=== PATIENT | female | born 1995 | race Caucasian/White ===

== ENCOUNTER → 2022-05-14 08:33 | Outpatient (CLI) | payer BC, SELFPAY ==
[2022-05-14 09:44] LABS: Add Manual Diff / Slide Review NO; Basophils Absolute Auto 0 /uL (0-100); Basophils Percent Auto 0.7 % (0-2); Eosinophils Absolute Auto 100 /uL (0-450); Eosinophils Percent Auto 1.5 % (2-4); Hematocrit 41.4 % (36-46); Hemoglobin 14.3 g/dL (12.0-16.0); Lymphocytes Absolute Auto 900 /uL (1100-4500); Lymphocytes Percent Auto 17.9 % (25-40); Mean Corpuscular HGB Conc 34.5 % (30-36); Mean Corpuscular Hemoglobin 30.5 PG (26-34); Mean Corpuscular Volume 88.3 fL (80-100); Monocytes Absolute Auto 400 /uL (0-900); Monocytes Percent Auto 8.3 % (3-14); Neutrophils Absolute Auto 3700 /uL (1500-7000); Neutrophils Percent Auto 71.6 % (50-75); Platelet Count 220 X10^3/uL (150-400); Red Blood Cell Count 4.69 X10^6/uL (4.0-5.2); Red Cell Distribution Width 12.7 % (11.6-14.8); White Blood Cell Count 5.2 X10^3/uL (4.5-11.0)
[2022-05-14 10:16] LABS: HEMOLYSIS < 15 (0-50); Iron 131 ug/dL (37-170)
[2022-05-14 10:20] LABS: Alanine Aminotransferase 15 IU/L (<35); Albumin 3.9 g/dL (3.5-5.0); Albumin Globulin Ratio 1.5 (1.0-2.8); Alkaline Phosphatase 67 U/L (38-126); Aspartate Aminotransferase 19 IU/L (14-36); BUN Creatinine Ratio 17.9 (6-22); Bilirubin Total 0.4 mg/dL (0.2-1.3); Blood Urea Nitrogen 12 mg/dL (7-17); Calcium 8.9 mg/dL (8.4-10.2); Carbon Dioxide 26 mmol/L (22-32); Chloride 108 mmol/L (98-107); Cholesterol 145 mg/dL (140-199); Estimated Glomerular Filt Rate > 60 mL/min (>60); Globulin 2.6 g/dL (1.7-4.1); Glucose 81 mg/dL (70-100); HDL Cholesterol 39 mg/dL (40-60); HEMOLYSIS < 15 (0-50); LDL Cholesterol Calculated 92 mg/dL (<100); Potassium 4.2 mmol/L (3.4-5.1); Sodium 140 mmol/L (137-145); Total Protein 6.5 g/dL (6.3-8.2); Triglycerides 68 mg/dL (35-150)
[2022-05-14 10:27] LABS: Percent Iron Saturation 46 % (15-50); Total Iron Binding Capacity 282 ug/dL (265-497); Transferrin 199 mg/dL (206-381)
[2022-05-14 10:51] LABS: Ferritin 43 ng/mL (6-137)
== END ==
PROVIDERS: Family Provider Family Medicine; PCP Family Medicine; Referring Provider Family Medicine; Visit Provider Family Medicine
DX: D50.9 Iron deficiency anemia, unspecified (principal); R73.9 Hyperglycemia, unspecified
CPT/HCPCS: 36415; 80053; 80061; 82728; 83540; 83550; 84443; 85025

== ENCOUNTER → 2022-06-23 09:44 | Outpatient (CLI) | payer BC, SELFPAY ==
[2022-06-23 10:54] LABS: Hematocrit 43.4 % (36-46); Mean Corpuscular HGB Conc 34.5 % (30-36); Mean Corpuscular Volume 86.9 fL (80-100); Platelet Count 246 X10^3/uL (150-400); Red Blood Cell Count 4.99 X10^6/uL (4.0-5.2); Red Cell Distribution Width 12.3 % (11.6-14.8); White Blood Cell Count 6.3 X10^3/uL (4.5-11.0)
[2022-06-23 11:22] LABS: Alanine Aminotransferase 14 IU/L (<35); Albumin 4.3 g/dL (3.5-5.0); Albumin Globulin Ratio 1.4 (1.0-2.8); Alkaline Phosphatase 68 U/L (38-126); Aspartate Aminotransferase 17 IU/L (14-36); BUN Creatinine Ratio 15.3 (6-22); Bilirubin Total 0.5 mg/dL (0.2-1.3); Blood Urea Nitrogen 11 mg/dL (7-17); Calcium 9.3 mg/dL (8.4-10.2); Carbon Dioxide 21 mmol/L (22-32); Chloride 107 mmol/L (98-107); Estimated Glomerular Filt Rate > 60 mL/min (>60); Globulin 3.1 g/dL (1.7-4.1); Glucose 80 mg/dL (70-100); HEMOLYSIS < 15 (0-50); Potassium 4.2 mmol/L (3.4-5.1); Sodium 140 mmol/L (137-145); Total Protein 7.4 g/dL (6.3-8.2)
[2022-07-02 18:50] LABS: Percent Free Testosterone 2.32 % (0.50-2.80); Testosterone Free 7.01 ng/dL (0.10-0.85)
== END ==
PROVIDERS: Family Provider Family Medicine; PCP Family Medicine; Referring Provider Family Medicine; Visit Provider Family Medicine
DX: Z51.81 Encounter for therapeutic drug level monitoring (principal); Z79.890 Hormone replacement therapy
CPT/HCPCS: 36415; 80053; 84402; 84403; 85027

== ENCOUNTER 2022-08-06 13:45 | Outpatient (RCR) | payer BC, SELFPAY ==
--- NOTE | 2022-04-26 15:32 | PT.OIE ---
Current Diagnoses Tarsal tunnel syndrome, bilateral lower limbs (04/26/22) Posterior tibial tendinitis, right leg (04/26/22) Pain in right foot (04/26/22) Visit Care Team Role Provider Type Naveen Vidal MD Family Provider Physician Primary Care Provider Specialty: Family Practice Address: [address] [place] [address], [address] Email: [email or web address] Navya Min DPM Attending Provider Physician Referring Provider Specialty: Orthopedic Surgery Podiatry Address: [address] [place] [address], [address] Email: [email or web address] Initial Evaluation PT-OP-A Visit Information Start: 04/26/22 08:08 Freq: Status: Active Protocol: Document 04/26/22 14:33 SAK (Rec: 04/26/22 15:19 SAK [id number]) Out-Patient Physical Therapy Visit Information Visit Information Visit Type Initial Evaluation Visit Start Time 14:35 Visit Stop Time 15:31 Total Visit Minutes 56 Visit Number 1 Evaluation Information Evaluation Date 04/26/22 PT-OP-B Current Condition Start: 04/26/22 08:08 Freq: Status: Active Protocol: Document 04/26/22 14:33 SAK (Rec: 04/26/22 15:19 SAK [id number]) Current Condition History of Current Condition Onset Date 2020 Current Complaints bilateral medial ankle pain History of Current Condition In July 2021 started ultimate [employer], got whitley splints, stopped playing friDEUSbee but pain seemed to have morphed into tarsal tunnel syndrome per physician diagnosis. 28 y/o brother has had tarsal tunnel syndrome that required surgery. Patient has gotten custom orthotics made at [facility], wearing for about 2 weeks and seem to be helping some, wears all the time. Also does icing, icy hot, stretching of calves and hamstrings. Has pain at the end of the day from usual activities around the house, unable to go for walks or do any athletic or recreational activities without an increase in pain Prior Treatments and Tests none. Future Testing and Treatments Planned return to physician if PT not helpful Treatment Goals Patient/Caregiver Goals Decrease pain, no pain by end of day, able to walk up to 2 miles as previosly. Play ultimate frisbee if possible. Prior Functional Status Baseline Function- ADL's Independent Baseline Function- Mobility Independent Baseline Function- Gait pain-free Baseline Function- Work/School online work. Also has carpal tunnel sundrome Baseline Function- Recreation/Hobbies rockclimbing Current Functional Impairments (Reported) Functional Limitations- Recreation/ unable. Hobbies PT-OP-C Subjective Start: 04/26/22 08:08 Freq: Status: Active Protocol: Document 04/26/22 14:33 [facility] (Rec: 04/27/22 13:41 [facility] [id number]) Patient Questionnaires Foot & Ankle Ability Measure- ADL and Sports FAAM-ADL Score 75 FAAM-Sport Score 65 Lower Extremity Functional Scale LEFS Score 74 OP-PT Pain Assessment Location ankles honorio Pain Location Details posteromedial Intensity 4 Description- Other 4-8/10 Frequency Frequent Pain Aggravating Factors Standing,Walking Pain Alleviating Factors Cold,Inactivity,Rest PT-OP-D Balance Start: 04/26/22 08:08 Freq: Status: Active Protocol: Document 04/26/22 14:33 [facility] (Rec: 04/27/22 13:41 [facility] [id number]) Balance Tests Single Limb Standing Single Limb- Right 7 Single Limb- Left 8 Semi-Tandem Standing Semi-Tandem Standing Balance 12 PT-OP-H Neuro Start: 04/26/22 08:08 Freq: Status: Active Protocol: Document 04/26/22 14:33 [facility] (Rec: 04/27/22 13:41 [facility] [id number]) Sensation Evaluation Gross Sensation Gross Sensation WNL PT-OP-J Posture/Palpation/Skin Start: 04/26/22 08:08 Freq: Status: Active Protocol: Document 04/26/22 14:33 [facility] (Rec: 04/27/22 13:41 [facility] [id number]) Posture Evaluation Position Standing Ankle/Foot Posture (L) Pronated,(R) Pronated Foot Arch (L) Low Arch,(R) Low Arch Palpation Assessment Location tib post Palpation Location mac; Palpation Findings Tenderness Palpation Details tenderness into calf ankles honorio Palpation Location post/medial Palpation Findings Tenderness PT-OP-K Range of Motion Start: 04/26/22 08:08 Freq: Status: Active Protocol: Document 04/26/22 14:33 [facility] (Rec: 04/27/22 13:41 [facility] [id number]) Ankle and Foot Goniometric Range of Motion Ankle and Foot Right Active Testing Position Supine Dorsiflexion with Knee Extended 8 Plantarflexion 65 Inversion 40 Eversion 8 Left Active Dorsiflexion with Knee Extended 8 Plantarflexion 58 Inversion 40 Eversion 10 PT-OP-M Strength Start: 04/26/22 08:08 Freq: Status: Active Protocol: Document 04/26/22 14:33 [facility] (Rec: 04/27/22 13:41 [facility] [id number]) Ankle/Foot Strength Ankle and Foot Manual Muscle Testing Right Dorsiflexion (L4) 4 Good Plantarflexion (S1) 4 Good Inversion 4 Good Eversion (S1) 4- Good- Left Dorsiflexion (L4) 4+ Good+ Plantarflexion (S1) 4+ Good+ Inversion 4+ Good+ Eversion (S1) 4 Good PT-OP-Q Treatments Start: 04/26/22 08:08 Freq: Status: Active Protocol: Document 04/26/22 14:33 [facility] (Rec: 04/27/22 13:41 [facility] [id number]) Manual Therapy Treatment Taping kinesiotape Body Location right post tib/tibial nerve route Treatment Focus inhibition, paper off tension Type of Tape Kinesio Tape Skin Inspection intact Comments 1 I strip: post tib insertion to origin Self-Care/Home Management Treatment Education Patient Education Home Exercise Program Other Education continue ice, consider compression, short foot exercises PT-OP-R Modalities Start: 04/26/22 08:08 Freq: Status: Active Protocol: Document 04/26/22 14:33 [facility] (Rec: 04/27/22 13:41 [facility] [id number]) Hot Pack/Cold Pack Treatment Cold Pack Location cryocuff right, ice pack left Patient Position Hooklying Treatment Duration (minutes) 10 Patient Tolerance Good Ultrasound Therapy Treatment Right Ankle Treatment Duration (minutes) 8 Patient Position Supine Coupling Medium Ultrasound Gel Frequency Setting (mHz) 2 Mode Setting Pulsed Duty Cycle 50% Comments tarsal tunnel region to decrease inflam PT-OP-T Assessment and Plan Start: 04/26/22 08:08 Freq: Status: Active Protocol: Document 04/26/22 14:33 [facility] (Rec: 04/27/22 13:41 [facility] [id number]) Physical Therapy Assessment Rehab Potential Rehabilitation Potential Good Evaluation Complexity Number of Personal Factors/Comorbidities 1-2 Number of Body Systems Impaired 3 Clinical Presentation at Evaluation Evolving Impairments Impairments Activity Tolerance,Balance, Pain,ROM,Strength Goals pain bilateral ankles Impairment pain 4/10 Impairment unable to take walks or play ultimate frisbee Tool Adjuster Goal (LTG) Patient lisa be able to resume taking walks up to 2 miles and playing frisbee with pain no greater than 2/10 strength and ROM impairment Impairment impaired strength and ROM bilateral feet and ankles Short Term Goal (STG) Patient will be instructed in progressive HEP consisting of strengthening and ROM STG Duration 05/27/22 Tool Adjuster Goal (LTG) Patient to demonstrate improvement in ROM to WNL bilateral feet and ankles, and strength 5/5. LTG Duration 06/27/22 balance Impairment limited SLS and tandem stance ability Short Term Goal (STG) Patient will be able to tolerate SLS and tandem stand balance exercises without an increase in pain STG Duration 05/27/22 Tool Adjuster Goal (LTG) Patient will be able to perform SLS honorio and tandem stand for 20 seconds without an increase in pain or LOB without UE support LTG Duration 06/27/22 activity tolerance Impairment ankle foot ability measure Impairment ADL's 75%, sports subscale 65% Short Term Goal (STG) Improve score to 85% ADL's and 75% sports STG Duration 05/27/22 Tool Adjuster Goal (LTG) Improve ADL score to 100% and sports score to 90% LTG Duration 06/27/22 Assessment Summary Assessment Patient presents to PT with function-limiting pain bilateral ankles right greater than left with signs and symptoms consistent with tarsal tunnel syndrome. Orthotics have helped some. Impairment decreased include ROM, strength, and balance and decreased activity tolerance. Feel he would benefit from PT to address the above impairments and help him return to prior level of function including walking and recreational activities with good tolerance. Physical Therapy Plan Frequency and Duration Frequency of Treatment 2x/Week Duration of Treatment 12 weeks Plan of Care Start Date 04/26/22 Plan of Care End Date 07/26/22 Therapeutic Interventions Therapeutic Interventions Aquatic Therapy,Balance Training,Gait Training,Home Exercise Program,Manual Therapy,Neuromuscular Re- education,Patient/Caregiver Education,Self-Care/Home Management,Soft Tissue Mobilization,Taping, Therapeutic Activities, Therapeutic Exercises Modalities Cold Pack/Ice Massage,Electric Stimulation,Hot Packs, Infrared Therapy,Iontophoresis ,Ultrasound Next Visit Focus/Plan Next Note Type Treatment Note Next Visit Plan Assess response to ultrasound and kinesiotape, review short foot exercise. Baps board for ankle ROM, theraband exercises for ankle strengthening, and balance exercises to include SLS and tandem stand as tolerated.
--- NOTE | 2022-04-26 15:32 | PT.OPPOC ---
Physical, Occupational & Speech Therapy At [facility] Current Diagnoses Tarsal tunnel syndrome, bilateral lower limbs (04/26/22) Posterior tibial tendinitis, right leg (04/26/22) Pain in right foot (04/26/22) Visit Care Team Role Provider Type Naveen Vidal MD Family Provider Physician Primary Care Provider Specialty: Family Practice Address: [address] [place] [address], [address] Email: [email or web address] Navya Min DPM Attending Provider Physician Referring Provider Specialty: Orthopedic Surgery Podiatry Address: [address] [place] [address], [address] Email: [email or web address] Plan Of Care PT-OP-T Assessment and Plan Start: 04/26/22 08:08 Freq: Status: Active Protocol: Document 04/26/22 14:33 [facility] (Rec: 04/27/22 13:41 [facility] [id number]) Physical Therapy Assessment Rehab Potential Rehabilitation Potential Good Evaluation Complexity Number of Personal Factors/Comorbidities 1-2 Number of Body Systems Impaired 3 Clinical Presentation at Evaluation Evolving Impairments Impairments Activity Tolerance,Balance, Pain,ROM,Strength Goals pain bilateral ankles Impairment pain 4/10 Impairment unable to take walks or play ultimate frisbee First Aid Nurse Goal (LTG) Patient lsia be able to resume taking walks up to 2 miles and playing frisbee with pain no greater than 2/10 strength and ROM impairment Impairment impaired strength and ROM bilateral feet and ankles Short Term Goal (STG) Patient will be instructed in progressive HEP consisting of strengthening and ROM STG Duration 05/27/22 Detention Goal (LTG) Patient to demonstrate improvement in ROM to WNL bilateral feet and ankles, and strength 5/5. LTG Duration 06/27/22 balance Impairment limited SLS and tandem stance ability Short Term Goal (STG) Patient will be able to tolerate SLS and tandem stand balance exercises without an increase in pain STG Duration 05/27/22 First Aid Nurse Goal (LTG) Patient will be able to perform SLS honorio and tandem stand for 20 seconds without an increase in pain or LOB without UE support LTG Duration 06/27/22 activity tolerance Impairment ankle foot ability measure Impairment ADL's 75%, sports subscale 65% Short Term Goal (STG) Improve score to 85% ADL's and 75% sports STG Duration 05/27/22 First Aid Nurse Goal (LTG) Improve ADL score to 100% and sports score to 90% LTG Duration 06/27/22 Assessment Summary Assessment Patient presents to PT with function-limiting pain bilateral ankles right greater than left with signs and symptoms consistent with tarsal tunnel syndrome. Orthotics have helped some. Impairment decreased include ROM, strength, and balance and decreased activity tolerance. Feel he would benefit from PT to address the above impairments and help him return to prior level of function including walking and recreational activities with good tolerance. Physical Therapy Plan Frequency and Duration Frequency of Treatment 2x/Week Duration of Treatment 12 weeks Plan of Care Start Date 04/26/22 Plan of Care End Date 07/26/22 Therapeutic Interventions Therapeutic Interventions Aquatic Therapy,Balance Training,Gait Training,Home Exercise Program,Manual Therapy,Neuromuscular Re- education,Patient/Caregiver Education,Self-Care/Home Management,Soft Tissue Mobilization,Taping, Therapeutic Activities, Therapeutic Exercises Modalities Cold Pack/Ice Massage,Electric Stimulation,Hot Packs, Infrared Therapy,Iontophoresis ,Ultrasound Next Visit Focus/Plan Next Note Type Treatment Note Next Visit Plan Assess response to ultrasound and kinesiotape, review short foot exercise. Baps board for ankle ROM, theraband exercises for ankle strengthening, and balance exercises to include SLS and tandem stand as tolerated. Plan of Care Dates Plan of Care Start Date 04/26/22 Plan of Care End Date 07/26/22 Electronically Signed by: Radha Pinedo, PT 04/27/22 4697 If you are in agreement with this Plan of Care, please return a signed and dated copy. I have reviewed this Plan of Care and certify that the skilled therapy services above are required to meet the patient?s needs. Physician Signature Date Printed Name and Credentials Clinical Instructor Signature Printed Name and Credentials
--- NOTE | 2022-05-03 16:24 | PT.OTN ---
Current Diagnoses Tarsal tunnel syndrome, bilateral lower limbs (05/03/22) Posterior tibial tendinitis, right leg (05/03/22) Pain in right foot (05/03/22) Physical Therapy Treatment Note PT-OP-A Visit Information Start: 04/26/22 08:08 Freq: Status: Active Protocol: Document 05/03/22 15:18 SAK (Rec: 05/03/22 16:24 SAK [id number]) Out-Patient Physical Therapy Visit Information Visit Information Visit Type Treatment Note Visit Start Time 15:20 Visit Stop Time 16:14 Total Visit Minutes 54 Visit Number 2 Evaluation Information Evaluation Date 04/26/22 PT-OP-B Current Condition Start: 04/26/22 08:08 Freq: Status: Active Protocol: Document 05/03/22 15:18 SAK (Rec: 05/03/22 16:24 [facility] [id number]) Current Condition History of Current Condition Onset Date 2020 Current Complaints bilateral medial ankle pain History of Current Condition In July 2021 started ultimate [employer]rim[employer], got whitley splints, stopped playing Micrima but pain seemed to have morphed into tarsal tunnel syndrome per physician diagnosis. 28 y/o brother has had tarsal tunnel syndrome that required surgery. Patient has gotten custom orthotics made at [facility], wearing for about 2 weeks and seem to be helping some, wears all the time. Also does icing, icy hot, stretching of calves and hamstrings. Has pain at the end of the day from usual activities around the house, unable to go for walks or do any athletic or recreational activities without an increase in pain Prior Treatments and Tests none. Future Testing and Treatments Planned return to physician if PT not helpful Treatment Goals Patient/Caregiver Goals Decrease pain, no pain by end of day, able to walk up to 2 miles as previosly. Play EndoDex if possible. PT-OP-C Subjective Start: 04/26/22 08:08 Freq: Status: Active Protocol: Document 05/03/22 15:18 SAK (Rec: 05/03/22 16:24 [facility] [id number]) OP-PT Subjective Patient Comments Patient Comments Did foot-based circuit workout and a fair bit of walking last week, had a hard week, reports wore good shoes. At its worst was 4/10, currently 1/10. Tolerated kinesiotape ok, shaved his legs because was painful removing. PT-OP-D Balance Start: 04/26/22 08:08 Freq: Status: Active Protocol: Document 04/26/22 14:33 [facility] (Rec: 04/27/22 13:41 [facility] [id number]) Balance Tests Single Limb Standing Single Limb- Right 7 Single Limb- Left 8 Semi-Tandem Standing Semi-Tandem Standing Balance 12 PT-OP-H Neuro Start: 04/26/22 08:08 Freq: Status: Active Protocol: Document 04/26/22 14:33 [facility] (Rec: 04/27/22 13:41 [facility] [id number]) Sensation Evaluation Gross Sensation Gross Sensation WNL PT-OP-J Posture/Palpation/Skin Start: 04/26/22 08:08 Freq: Status: Active Protocol: Document 04/26/22 14:33 [facility] (Rec: 04/27/22 13:41 [facility] [id number]) Posture Evaluation Position Standing Ankle/Foot Posture (L) Pronated,(R) Pronated Foot Arch (L) Low Arch,(R) Low Arch Palpation Assessment Location tib post Palpation Location mac; Palpation Findings Tenderness Palpation Details tenderness into calf ankles honorio Palpation Location post/medial Palpation Findings Tenderness PT-OP-K Range of Motion Start: 04/26/22 08:08 Freq: Status: Active Protocol: Document 04/26/22 14:33 [facility] (Rec: 04/27/22 13:41 [facility] [id number]) Ankle and Foot Goniometric Range of Motion Ankle and Foot Right Active Testing Position Supine Dorsiflexion with Knee Extended 8 Plantarflexion 65 Inversion 40 Eversion 8 Left Active Dorsiflexion with Knee Extended 8 Plantarflexion 58 Inversion 40 Eversion 10 PT-OP-M Strength Start: 04/26/22 08:08 Freq: Status: Active Protocol: Document 04/26/22 14:33 [facility] (Rec: 04/27/22 13:41 [facility] [id number]) Ankle/Foot Strength Ankle and Foot Manual Muscle Testing Right Dorsiflexion (L4) 4 Good Plantarflexion (S1) 4 Good Inversion 4 Good Eversion (S1) 4- Good- Left Dorsiflexion (L4) 4+ Good+ Plantarflexion (S1) 4+ Good+ Inversion 4+ Good+ Eversion (S1) 4 Good PT-OP-Q Treatments Start: 04/26/22 08:08 Freq: Status: Active Protocol: Document 05/03/22 15:18 [facility] (Rec: 05/03/22 16:24 [facility] [id number]) Cardio Equipment Recumbent Stepper (Sci-Fit) Resistance 2 Seat Position 10 Other cues for neutral foot alignment Therapeutic Exercises Sitting Exercises short foot Reps/Minutes 10x foot inv/ev Reps/Minutes 10x Comments cues for movement at ankles only ankle pumps Reps/Minutes 10x Comments long sit, cues for neutral movement BAPS board Equipment Used L3 Reps/Minutes 10x HC stretch Equipment Used strap Reps/Minutes 2x30 Standing Exercises tandem stand Reps/Minutes 4x30 SLS Reps/Minutes 2x30 heel raises Reps/Minutes 10x Manual Therapy Treatment Soft Tissue Mobilization tarsel tunnel Body Location left Mobilization Type Cross-Friction Intensity/Depth Moderate Body Position long sit Taping kinesiotape Body Location right post tib/tibial nerve route, arch Treatment Focus inhibition, support Type of Tape Kinesio Tape Skin Inspection intact Comments 2 I strip: post tib insertion to origin paper off ttension arch 75% stretch Self-Care/Home Management Treatment Education Patient Education Home Exercise Program Other Education issued written HEP PT-OP-R Modalities Start: 04/26/22 08:08 Freq: Status: Active Protocol: Document 05/03/22 15:18 [facility] (Rec: 05/03/22 16:24 [facility] [id number]) Hot Pack/Cold Pack Treatment Cold Pack Location cryocuff left, ice pack right Patient Position Hooklying Treatment Duration (minutes) 10 Patient Tolerance Good PT-OP-T Assessment and Plan Start: 04/26/22 08:08 Freq: Status: Active Protocol: Document 05/03/22 15:18 [facility] (Rec: 05/03/22 16:24 [facility] [id number]) Physical Therapy Assessment Goals pain bilateral ankles Impairment pain 4/10 Impairment unable to take walks or play ultimate frisbee Intermediate Goal (LTG) Patient lisa be able to resume taking walks up to 2 miles and playing frisbee with pain no greater than 2/10 strength and ROM impairment Impairment impaired strength and ROM bilateral feet and ankles Short Term Goal (STG) Patient will be instructed in progressive HEP consisting of strengthening and ROM STG Duration 05/27/22 Code Enforcement Inspector Goal (LTG) Patient to demonstrate improvement in ROM to WNL bilateral feet and ankles, and strength 5/5. LTG Duration 06/27/22 balance Impairment limited SLS and tandem stance ability Short Term Goal (STG) Patient will be able to tolerate SLS and tandem stand balance exercises without an increase in pain STG Duration 05/27/22 Intermediate Goal (LTG) Patient will be able to perform SLS honorio and tandem stand for 20 seconds without an increase in pain or LOB without UE support LTG Duration 06/27/22 activity tolerance Impairment ankle foot ability measure Impairment ADL's 75%, sports subscale 65% Short Term Goal (STG) Improve score to 85% ADL's and 75% sports STG Duration 05/27/22 Code Enforcement Inspector Goal (LTG) Improve ADL score to 100% and sports score to 90% LTG Duration 06/27/22 Assessment Summary Assessment patient needs moderate cues for correction of foot alignment statically and dynamically with ther ex. Used mirror for visual feedback where possible. Patient demonstrated good undertsanding of HEP after instruction. Numbness into left foot with cross friction inferior tarsal tunnel Physical Therapy Plan Frequency and Duration Frequency of Treatment 2x/Week Duration of Treatment 12 weeks Plan of Care Start Date 04/26/22 Plan of Care End Date 07/26/22 Therapeutic Interventions Therapeutic Interventions Aquatic Therapy,Balance Training,Gait Training,Home Exercise Program,Manual Therapy,Neuromuscular Re- education,Patient/Caregiver Education,Self-Care/Home Management,Soft Tissue Mobilization,Taping, Therapeutic Activities, Therapeutic Exercises Modalities Cold Pack/Ice Massage,Electric Stimulation,Hot Packs, Infrared Therapy,Iontophoresis ,Ultrasound Next Visit Focus/Plan Next Note Type Treatment Note Next Visit Plan Assess response to ultrasound and kinesiotape, review short foot exercise. Baps board for ankle ROM, theraband exercises for ankle strengthening, and balance exercises to include SLS and tandem stand as tolerated.
--- NOTE | 2022-05-17 16:28 | PT.OTN ---
Current Diagnoses Tarsal tunnel syndrome, bilateral lower limbs (05/17/22) Posterior tibial tendinitis, right leg (05/17/22) Pain in right foot (05/17/22) Physical Therapy Treatment Note PT-OP-A Visit Information Start: 04/26/22 08:08 Freq: Status: Active Protocol: Document 05/17/22 15:22 [facility] (Rec: 05/17/22 16:03 [facility] [id number]) Out-Patient Physical Therapy Visit Information Visit Information Visit Type Treatment Note Visit Start Time 15:20 Visit Stop Time 16:14 Total Visit Minutes 54 Visit Number 3 PT-OP-B Current Condition Start: 04/26/22 08:08 Freq: Status: Active Protocol: Document 05/17/22 15:22 [facility]AK (Rec: 05/17/22 16:03 [facility] [id number]) Current Condition History of Current Condition Onset Date 2020 Current Complaints bilateral medial ankle pain History of Current Condition In July 2021 started [email or web address], got whitley splints, stopped playing [employer] but pain seemed to have morphed into tarsal tunnel syndrome per physician diagnosis. 28 y/o brother has had tarsal tunnel syndrome that required surgery. Patient has gotten custom orthotics made at [facility], wearing for about 2 weeks and seem to be helping some, wears all the time. Also does icing, icy hot, stretching of calves and hamstrings. Has pain at the end of the day from usual activities around the house, unable to go for walks or do any athletic or recreational activities without an increase in pain Prior Treatments and Tests none. Future Testing and Treatments Planned return to physician if PT not helpful Treatment Goals Patient/Caregiver Goals Decrease pain, no pain by end of day, able to walk up to 2 miles as previosly. Play [email or web address] if possible. Prior Functional Status Baseline Function- ADL's Independent Baseline Function- Mobility Independent Baseline Function- Gait pain-free Baseline Function- Work/School online work. Also has carpal tunnel sundrome Baseline Function- Recreation/Hobbies rockclimbing PT-OP-C Subjective Start: 04/26/22 08:08 Freq: Status: Active Protocol: Document 05/17/22 15:22 SAK (Rec: 05/17/22 16:03 [facility] [id number]) OP-PT Subjective Patient Comments Patient Comments Went on trip over week, walked a lot. 3rd day had to sit mostly, pain diminished over 4 days. Did some HEP, no ice available. OP-PT Pain Assessment Comments Pain Comments Did a lot of walking last weekend, had a lot of pain. 3rd day of sight seeing just sat because of pain. Did PT exercises last week , calf stretches while gone. Pain gradually decreased over 4 days. PT-OP-D Balance Start: 04/26/22 08:08 Freq: Status: Active Protocol: Document 04/26/22 14:33 [facility] (Rec: 04/27/22 13:41 [facility] [id number]) Balance Tests Single Limb Standing Single Limb- Right 7 Single Limb- Left 8 Semi-Tandem Standing Semi-Tandem Standing Balance 12 PT-OP-H Neuro Start: 04/26/22 08:08 Freq: Status: Active Protocol: Document 04/26/22 14:33 [facility] (Rec: 04/27/22 13:41 [facility] [id number]) Sensation Evaluation Gross Sensation Gross Sensation WNL PT-OP-J Posture/Palpation/Skin Start: 04/26/22 08:08 Freq: Status: Active Protocol: Document 04/26/22 14:33 [facility] (Rec: 04/27/22 13:41 [facility] [id number]) Posture Evaluation Position Standing Ankle/Foot Posture (L) Pronated,(R) Pronated Foot Arch (L) Low Arch,(R) Low Arch Palpation Assessment Location tib post Palpation Location mac; Palpation Findings Tenderness Palpation Details tenderness into calf ankles honorio Palpation Location post/medial Palpation Findings Tenderness PT-OP-K Range of Motion Start: 04/26/22 08:08 Freq: Status: Active Protocol: Document 04/26/22 14:33 [facility] (Rec: 04/27/22 13:41 [facility] [id number]) Ankle and Foot Goniometric Range of Motion Ankle and Foot Right Active Testing Position Supine Dorsiflexion with Knee Extended 8 Plantarflexion 65 Inversion 40 Eversion 8 Left Active Dorsiflexion with Knee Extended 8 Plantarflexion 58 Inversion 40 Eversion 10 PT-OP-M Strength Start: 04/26/22 08:08 Freq: Status: Active Protocol: Document 04/26/22 14:33 [facility] (Rec: 04/27/22 13:41 [facility] [id number]) Ankle/Foot Strength Ankle and Foot Manual Muscle Testing Right Dorsiflexion (L4) 4 Good Plantarflexion (S1) 4 Good Inversion 4 Good Eversion (S1) 4- Good- Left Dorsiflexion (L4) 4+ Good+ Plantarflexion (S1) 4+ Good+ Inversion 4+ Good+ Eversion (S1) 4 Good PT-OP-Q Treatments Start: 04/26/22 08:08 Freq: Status: Active Protocol: Document 05/17/22 15:22 [facility] (Rec: 05/17/22 16:03 [facility] [id number]) Cardio Equipment Recumbent Stepper (Sci-Fit) Duration (Minutes) 6 Resistance 2 Seat Position 10 Other cues for neutral foot alignment Gym Equipment Shuttle Balance chains red Details bal and weight shift fwd/bck, side, tandem Reps/Duration 6 min Therapeutic Exercises Sitting Exercises 4 way resisted ankle Resistance L2 TB Reps/Minutes 10x short foot Reps/Minutes 10x BAPS board Equipment Used L4 Reps/Minutes 10x Standing Exercises HC Stretch Reps/Minutes 2x30 tandem stand Standing Exercise Name HEP SLS Standing Exercise Name HEP heel raises Standing Exercise Name HEP Manual Therapy Treatment Taping kinesiotape Comments not done today, patient not sure helpful. Neuro Re-Education Treatment Balance Activities 1/2 foam roll Surface flat side up Reps/Duration 2 min Comments balance tandem, perpendicular Self-Care/Home Management Treatment Education Patient Education Home Exercise Program Other Education issued updated written HEP PT-OP-R Modalities Start: 04/26/22 08:08 Freq: Status: Active Protocol: Document 05/17/22 15:22 [facility] (Rec: 05/17/22 16:03 [facility] [id number]) Hot Pack/Cold Pack Treatment Cold Pack Location cryocuff right, ice pack left Patient Position Hooklying Treatment Duration (minutes) 10 Patient Tolerance Good PT-OP-T Assessment and Plan Start: 04/26/22 08:08 Freq: Status: Active Protocol: Document 05/17/22 15:22 [facility] (Rec: 05/17/22 16:03 [facility] [id number]) Physical Therapy Assessment Goals pain bilateral ankles Impairment pain 4/10 Impairment unable to take walks or play ultimate frisbee [employer] Goal (LTG) Patient lisa be able to resume taking walks up to 2 miles and playing frisbee with pain no greater than 2/10 strength and ROM impairment Impairment impaired strength and ROM bilateral feet and ankles Short Term Goal (STG) Patient will be instructed in progressive HEP consisting of strengthening and ROM STG Duration 05/27/22 Nursing Home Goal (LTG) Patient to demonstrate improvement in ROM to WNL bilateral feet and ankles, and strength 5/5. LTG Duration 06/27/22 balance Impairment limited SLS and tandem stance ability Short Term Goal (STG) Patient will be able to tolerate SLS and tandem stand balance exercises without an increase in pain STG Duration 05/27/22 Nursing Home Goal (LTG) Patient will be able to perform SLS honorio and tandem stand for 20 seconds without an increase in pain or LOB without UE support LTG Duration 06/27/22 activity tolerance Impairment ankle foot ability measure Impairment ADL's 75%, sports subscale 65% Short Term Goal (STG) Improve score to 85% ADL's and 75% sports STG Duration 05/27/22 Nursing Home Goal (LTG) Improve ADL score to 100% and sports score to 90% LTG Duration 06/27/22 Assessment Summary Assessment Patient reporting pain with prolonged standing and walking over weekend but then diminished. Good tolerance for progression of ther ex today to include shuttle balance. Not sure feeling benefit from kinesiotape so not done today; emphasis on ther ex, LE alignment and strengthening of instrinsic musculature. Physical Therapy Plan Frequency and Duration Frequency of Treatment 2x/Week Duration of Treatment 12 weeks Plan of Care Start Date 04/26/22 Plan of Care End Date 07/26/22 Therapeutic Interventions Therapeutic Interventions Aquatic Therapy,Balance Training,Gait Training,Home Exercise Program,Manual Therapy,Neuromuscular Re- education,Patient/Caregiver Education,Self-Care/Home Management,Soft Tissue Mobilization,Taping, Therapeutic Activities, Therapeutic Exercises Modalities Cold Pack/Ice Massage,Electric Stimulation,Hot Packs, Infrared Therapy,Iontophoresis ,Ultrasound Next Visit Focus/Plan Next Note Type Treatment Note Next Visit Plan Continue progression of ther ex for strengthening, flexibility, foot stabilization, gait mechanics, pain management.
--- NOTE | 2022-06-14 16:19 | PT.OTN ---
Current Diagnoses Tarsal tunnel syndrome, bilateral lower limbs (06/14/22) Posterior tibial tendinitis, right leg (06/14/22) Pain in right foot (06/14/22) Physical Therapy Treatment Note PT-OP-A Visit Information Start: 04/26/22 08:08 Freq: Status: Active Protocol: Document 06/14/22 15:16 [facility] (Rec: 06/14/22 16:19 [facility] [id number]) Out-Patient Physical Therapy Visit Information Visit Information Visit Type Treatment Note Visit Start Time 15:16 Visit Stop Time 16:15 Total Visit Minutes 59 Visit Number 4 Evaluation Information Evaluation Date 04/26/22 PT-OP-B Current Condition Start: 04/26/22 08:08 Freq: Status: Active Protocol: Document 06/14/22 15:16 [facility] (Rec: 06/14/22 16:19 [facility] [id number]) Current Condition History of Current Condition Onset Date 2020 Current Complaints bilateral medial ankle pain History of Current Condition In July 2021 started [employer], got whitley splints, stopped playing [employer] but pain seemed to have morphed into tarsal tunnel syndrome per physician diagnosis. 28 y/o brother has had tarsal tunnel syndrome that required surgery. Patient has gotten custom orthotics made at [facility], wearing for about 2 weeks and seem to be helping some, wears all the time. Also does icing, icy hot, stretching of calves and hamstrings. Has pain at the end of the day from usual activities around the house, unable to go for walks or do any athletic or recreational activities without an increase in pain Prior Treatments and Tests none. Future Testing and Treatments Planned return to physician if PT not helpful Treatment Goals Patient/Caregiver Goals Decrease pain, no pain by end of day, able to walk up to 2 miles as previosly. Play [employer] if possible. Prior Functional Status Baseline Function- ADL's Independent Baseline Function- Mobility Independent Baseline Function- Gait pain-free Baseline Function- Work/School online work. Also has carpal tunnel sundrome Baseline Function- Recreation/Hobbies rockclimbing PT-OP-C Subjective Start: 04/26/22 08:08 Freq: Status: Active Protocol: Document 06/14/22 15:16 [facility] (Rec: 06/14/22 16:19 [facility] [id number]) OP-PT Subjective Patient Comments Patient Comments Left foot doesn't hurt much at all with 30 min walk, right foot hurting but mostly when in bed and when sitting at his desk. Hasn't done much HEP recently, had top surgery 3 weeks ago. PT-OP-D Balance Start: 04/26/22 08:08 Freq: Status: Active Protocol: Document 04/26/22 14:33 [facility] (Rec: 04/27/22 13:41 [facility] [id number]) Balance Tests Single Limb Standing Single Limb- Right 7 Single Limb- Left 8 Semi-Tandem Standing Semi-Tandem Standing Balance 12 PT-OP-H Neuro Start: 04/26/22 08:08 Freq: Status: Active Protocol: Document 04/26/22 14:33 [facility] (Rec: 04/27/22 13:41 [facility] [id number]) Sensation Evaluation Gross Sensation Gross Sensation WNL PT-OP-J Posture/Palpation/Skin Start: 04/26/22 08:08 Freq: Status: Active Protocol: Document 04/26/22 14:33 [facility] (Rec: 04/27/22 13:41 [facility] [id number]) Posture Evaluation Position Standing Ankle/Foot Posture (L) Pronated,(R) Pronated Foot Arch (L) Low Arch,(R) Low Arch Palpation Assessment Location tib post Palpation Location mac; Palpation Findings Tenderness Palpation Details tenderness into calf ankles honorio Palpation Location post/medial Palpation Findings Tenderness PT-OP-K Range of Motion Start: 04/26/22 08:08 Freq: Status: Active Protocol: Document 04/26/22 14:33 [facility] (Rec: 04/27/22 13:41 [facility] [id number]) Ankle and Foot Goniometric Range of Motion Ankle and Foot Right Active Testing Position Supine Dorsiflexion with Knee Extended 8 Plantarflexion 65 Inversion 40 Eversion 8 Left Active Dorsiflexion with Knee Extended 8 Plantarflexion 58 Inversion 40 Eversion 10 PT-OP-M Strength Start: 04/26/22 08:08 Freq: Status: Active Protocol: Document 04/26/22 14:33 [facility] (Rec: 04/27/22 13:41 [facility] [id number]) Ankle/Foot Strength Ankle and Foot Manual Muscle Testing Right Dorsiflexion (L4) 4 Good Plantarflexion (S1) 4 Good Inversion 4 Good Eversion (S1) 4- Good- Left Dorsiflexion (L4) 4+ Good+ Plantarflexion (S1) 4+ Good+ Inversion 4+ Good+ Eversion (S1) 4 Good PT-OP-Q Treatments Start: 04/26/22 08:08 Freq: Status: Active Protocol: Document 06/14/22 15:16 [facility] (Rec: 06/14/22 16:19 [facility] [id number]) Cardio Equipment Recumbent Stepper (Sci-Fit) Duration (Minutes) 7 Resistance 2 Seat Position 10 Other cues for neutral foot alignment Gym Equipment Shuttle Balance chains red Details bal and weight shift fwd/bck, side, tandem Reps/Duration 6 min Therapeutic Exercises Sitting Exercises 4 way resisted ankle Resistance L2 TB Reps/Minutes 10x BAPS board Equipment Used L4 Reps/Minutes 10x Standing Exercises toe raises Reps/Minutes 10x HC Stretch Equipment Used TRENA Reps/Minutes 2x30 tandem stand Reps/Minutes 1 min SLS Reps/Minutes 1 min heel raises Reps/Minutes 10x Manual Therapy Treatment Soft Tissue Mobilization tarsel tunnel Body Location left Mobilization Type Cross-Friction Intensity/Depth Moderate Body Position long sit Neuro Re-Education Treatment Balance Activities 1/2 foam roll Surface flat side up Reps/Duration 2 min Comments balance tandem, perpendicular Self-Care/Home Management Treatment Education Patient Education Home Exercise Program Other Education urged to increase compliance to HEP PT-OP-R Modalities Start: 04/26/22 08:08 Freq: Status: Active Protocol: Document 06/14/22 15:16 [facility] (Rec: 06/14/22 16:19 [facility] [id number]) Hot Pack/Cold Pack Treatment Cold Pack Location cryocuff right, ice pack left Patient Position Hooklying Treatment Duration (minutes) 10 Patient Tolerance Good Ultrasound Therapy Treatment Right Ankle Treatment Duration (minutes) 8 Patient Position Supine Coupling Medium Ultrasound Gel Frequency Setting (mHz) 3 Mode Setting Pulsed Duty Cycle 50% Intensity Setting (w/cm2) 1.2 Comments tarsal tunnel region to decrease inflam PT-OP-T Assessment and Plan Start: 04/26/22 08:08 Freq: Status: Active Protocol: Document 06/14/22 15:16 [facility] (Rec: 06/14/22 16:19 [facility] [id number]) Physical Therapy Assessment Goals pain bilateral ankles Impairment pain 4/10 Impairment unable to take walks or play ultimate frisbee [facility] Goal (LTG) Patient lisa be able to resume taking walks up to 2 miles and playing frisbee with pain no greater than 2/10 strength and ROM impairment Impairment impaired strength and ROM bilateral feet and ankles Short Term Goal (STG) Patient will be instructed in progressive HEP consisting of strengthening and ROM STG Duration 05/27/22 [facility] Goal (LTG) Patient to demonstrate improvement in ROM to WNL bilateral feet and ankles, and strength 5/5. LTG Duration 06/27/22 balance Impairment limited SLS and tandem stance ability Short Term Goal (STG) Patient will be able to tolerate SLS and tandem stand balance exercises without an increase in pain STG Duration 05/27/22 [facility] Goal (LTG) Patient will be able to perform SLS honorio and tandem stand for 20 seconds without an increase in pain or LOB without UE support LTG Duration 06/27/22 activity tolerance Impairment ankle foot ability measure Impairment ADL's 75%, sports subscale 65% Short Term Goal (STG) Improve score to 85% ADL's and 75% sports STG Duration 05/27/22 [facility] Goal (LTG) Improve ADL score to 100% and sports score to 90% LTG Duration 06/27/22 Assessment Summary Assessment Noted decreased pain with decreased activity s/p top surgery. Denied pain with ex today. Uncertain cause of increased pain while in bed. Physical Therapy Plan Frequency and Duration Frequency of Treatment 2x/Week Duration of Treatment 12 weeks Plan of Care Start Date 04/26/22 Plan of Care End Date 07/26/22 Therapeutic Interventions Therapeutic Interventions Aquatic Therapy,Balance Training,Gait Training,Home Exercise Program,Manual Therapy,Neuromuscular Re- education,Patient/Caregiver Education,Self-Care/Home Management,Soft Tissue Mobilization,Taping, Therapeutic Activities, Therapeutic Exercises Modalities Cold Pack/Ice Massage,Electric Stimulation,Hot Packs, Infrared Therapy,Iontophoresis ,Ultrasound Next Visit Focus/Plan Next Note Type Treatment Note Next Visit Plan Continue progression of ther ex for strengthening, flexibility, foot stabilization, gait mechanics, pain management.
--- NOTE | 2022-06-16 14:32 | PT-OP ANOTE ---
cancelled appointment, NRG
--- NOTE | 2022-06-21 16:17 | PT.OTN ---
Current Diagnoses Tarsal tunnel syndrome, bilateral lower limbs (06/21/22) Posterior tibial tendinitis, right leg (06/21/22) Pain in right foot (06/21/22) Physical Therapy Treatment Note PT-OP-A Visit Information Start: 04/26/22 08:08 Freq: Status: Active Protocol: Document 06/21/22 15:21 SAK (Rec: 06/21/22 16:16 SAK [id number]) Out-Patient Physical Therapy Visit Information Visit Information Visit Type Treatment Note Visit Start Time 15:17 Visit Number 5 Evaluation Information Evaluation Date 04/26/22 PT-OP-B Current Condition Start: 04/26/22 08:08 Freq: Status: Active Protocol: Document 06/21/22 15:21 SAK (Rec: 06/21/22 16:16 SAK [id number]) Current Condition History of Current Condition Onset Date 2020 Current Complaints bilateral medial ankle pain History of Current Condition In July 2021 started ultimate [employer], got whitley splints, stopped playing [employer] but pain seemed to have morphed into tarsal tunnel syndrome per physician diagnosis. 28 y/o brother has had tarsal tunnel syndrome that required surgery. Patient has gotten custom orthotics made at [employer], wearing for about 2 weeks and seem to be helping some, wears all the time. Also does icing, icy hot, stretching of calves and hamstrings. Has pain at the end of the day from usual activities around the house, unable to go for walks or do any athletic or recreational activities without an increase in pain Prior Treatments and Tests none. Future Testing and Treatments Planned return to physician if PT not helpful PT-OP-C Subjective Start: 04/26/22 08:08 Freq: Status: Active Protocol: Document 06/21/22 15:21 SAK (Rec: 06/21/22 16:16 SAK [id number]) OP-PT Subjective Patient Comments Patient Comments better than last week, not amazing. Did just a little walking over the weekend. Hurt a ton when sleeping, 4/10 , during the day less than 4, at times during the day minimal pain. Good compliance to HEP. PT-OP-D Balance Start: 04/26/22 08:08 Freq: Status: Active Protocol: Document 04/26/22 14:33 SAK (Rec: 04/27/22 13:41 SAK [id number]) Balance Tests Single Limb Standing Single Limb- Right 7 Single Limb- Left 8 Semi-Tandem Standing Semi-Tandem Standing Balance 12 PT-OP-H Neuro Start: 04/26/22 08:08 Freq: Status: Active Protocol: Document 04/26/22 14:33 [facility] (Rec: 04/27/22 13:41 [facility] [id number]) Sensation Evaluation Gross Sensation Gross Sensation WNL PT-OP-J Posture/Palpation/Skin Start: 04/26/22 08:08 Freq: Status: Active Protocol: Document 04/26/22 14:33 [facility] (Rec: 04/27/22 13:41 [facility] [id number]) Posture Evaluation Position Standing Ankle/Foot Posture (L) Pronated,(R) Pronated Foot Arch (L) Low Arch,(R) Low Arch Palpation Assessment Location tib post Palpation Location mac; Palpation Findings Tenderness Palpation Details tenderness into calf ankles honorio Palpation Location post/medial Palpation Findings Tenderness PT-OP-K Range of Motion Start: 04/26/22 08:08 Freq: Status: Active Protocol: Document 04/26/22 14:33 [facility] (Rec: 04/27/22 13:41 [facility] [id number]) Ankle and Foot Goniometric Range of Motion Ankle and Foot Right Active Testing Position Supine Dorsiflexion with Knee Extended 8 Plantarflexion 65 Inversion 40 Eversion 8 Left Active Dorsiflexion with Knee Extended 8 Plantarflexion 58 Inversion 40 Eversion 10 PT-OP-M Strength Start: 04/26/22 08:08 Freq: Status: Active Protocol: Document 04/26/22 14:33 [facility] (Rec: 04/27/22 13:41 [facility] [id number]) Ankle/Foot Strength Ankle and Foot Manual Muscle Testing Right Dorsiflexion (L4) 4 Good Plantarflexion (S1) 4 Good Inversion 4 Good Eversion (S1) 4- Good- Left Dorsiflexion (L4) 4+ Good+ Plantarflexion (S1) 4+ Good+ Inversion 4+ Good+ Eversion (S1) 4 Good PT-OP-Q Treatments Start: 04/26/22 08:08 Freq: Status: Active Protocol: Document 06/21/22 15:21 [facility] (Rec: 06/21/22 16:16 [facility] [id number]) Gym Equipment Shuttle Balance chains red Details bal and weight shift fwd/bck, side, tandem Reps/Duration 6 min Therapeutic Exercises Sitting Exercises 4 way resisted ankle Sitting Exercise Name HEP short foot Sitting Exercise Name HEP foot inv/ev Sitting Exercise Name HEP ankle pumps Sitting Exercise Name HEP Standing Exercises HC Stretch Equipment Used TRENA Reps/Minutes 2x30 tandem stand Reps/Minutes 1 min SLS Standing Exercise Name HEP heel raises Standing Exercise Name HEP Comments demonstrated 2 reps, improved form as instructed Self-Care/Home Management Treatment Education Patient Education Home Exercise Program PT-OP-R Modalities Start: 04/26/22 08:08 Freq: Status: Active Protocol: Document 06/21/22 15:21 [facility] (Rec: 06/21/22 16:16 [facility] [id number]) Hot Pack/Cold Pack Treatment Cold Pack Location cryocuff right, ice pack left Patient Position Hooklying Treatment Duration (minutes) 10 Patient Tolerance Good Iontophoresis Treatment right tarsal tunnel Treatment Medication Dexamethasone (-) Medication Amount (mL) (ml) 1 Treatment Polarity negative Treatment Duration (minutes) 3 Ultrasound Therapy Treatment left ankle Treatment Duration (minutes) 8 Patient Position Supine Coupling Medium Ultrasound Gel Frequency Setting (mHz) 3 Mode Setting Pulsed Duty Cycle 50% Intensity Setting (w/cm2) 1.2 Right Ankle Treatment Duration (minutes) 8 Patient Position Supine Coupling Medium Ultrasound Gel Frequency Setting (mHz) 3 Mode Setting Pulsed Duty Cycle 50% Intensity Setting (w/cm2) 1.2 Comments tarsal tunnel region to decrease inflam PT-OP-T Assessment and Plan Start: 04/26/22 08:08 Freq: Status: Active Protocol: Document 06/21/22 15:21 [facility] (Rec: 06/21/22 16:16 [facility] [id number]) Physical Therapy Assessment Goals pain bilateral ankles Impairment pain 4/10 Impairment unable to take walks or play ultimate fr[employer]bee Lead Instructor/Flight Attendant Goal (LTG) Patient lisa be able to resume taking walks up to 2 miles and playing frisbee with pain no greater than 2/10 strength and ROM impairment Impairment impaired strength and ROM bilateral feet and ankles Short Term Goal (STG) Patient will be instructed in progressive HEP consisting of strengthening and ROM STG Duration 05/27/22 [employer] Instructor/[employer]light Attendant Goal (LTG) Patient to demonstrate improvement in ROM to WNL bilateral feet and ankles, and strength 5/5. LTG Duration 06/27/22 balance Impairment limited SLS and tandem stance ability Short Term Goal (STG) Patient will be able to tolerate SLS and tandem stand balance exercises without an increase in pain STG Duration 05/27/22 [facility] Goal (LTG) Patient will be able to perform SLS honorio and tandem stand for 20 seconds without an increase in pain or LOB without UE support LTG Duration 06/27/22 activity tolerance Impairment ankle foot ability measure Impairment ADL's 75%, sports subscale 65% Short Term Goal (STG) Improve score to 85% ADL's and 75% sports STG Duration 05/27/22 Lead Instructor/Flight Attendant Goal (LTG) Improve ADL score to 100% and sports score to 90% LTG Duration 06/27/22 Assessment Summary Assessment Added towel scrunch exercise with good tolerance. Patient verbalizing good compliance to HEP, improved performance of heel raise with more equal weight-bearing. Improved balance and stability on shuttle balance. Pain some better today but fairly low activity level. trial Iontophoresis today right tarsal tunnel. Physical Therapy Plan Frequency and Duration Frequency of Treatment 2x/Week Duration of Treatment 12 weeks Plan of Care Start Date 04/26/22 Plan of Care End Date 07/26/22 Therapeutic Interventions Therapeutic Interventions Aquatic Therapy,Balance Training,Gait Training,Home Exercise Program,Manual Therapy,Neuromuscular Re- education,Patient/Caregiver Education,Self-Care/Home Management,Soft Tissue Mobilization,Taping, Therapeutic Activities, Therapeutic Exercises Modalities Cold Pack/Ice Massage,Electric Stimulation,Hot Packs, Infrared Therapy,Iontophoresis ,Ultrasound Next Visit Focus/Plan Next Note Type Treatment Note Next Visit Plan Continue progression of ther ex for strengthening, flexibility, foot stabilization, gait mechanics, pain management.
--- NOTE | 2022-06-23 16:18 | PT.OTN ---
Current Diagnoses Tarsal tunnel syndrome, bilateral lower limbs (06/23/22) Posterior tibial tendinitis, right leg (06/23/22) Pain in right foot (06/23/22) Physical Therapy Treatment Note PT-OP-A Visit Information Start: 04/26/22 08:08 Freq: Status: Active Protocol: Document 06/23/22 15:15 SAK (Rec: 06/23/22 16:18 SAK [id number]) Out-Patient Physical Therapy Visit Information Visit Information Visit Type Treatment Note Visit Start Time 15:16 Total Visit Minutes 59 Visit Number 5 Evaluation Information Evaluation Date 04/26/22 PT-OP-B Current Condition Start: 04/26/22 08:08 Freq: Status: Active Protocol: Document 06/23/22 15:15 SAK (Rec: 06/23/22 16:18 SAK [id number]) Current Condition History of Current Condition Onset Date 2020 Current Complaints bilateral medial ankle pain History of Current Condition In July 2021 started ultimate [employer], got whitley splints, stopped playing [employer] but pain seemed to have morphed into tarsal tunnel syndrome per physician diagnosis. 28 y/o brother has had tarsal tunnel syndrome that required surgery. Patient has gotten custom orthotics made at [employer], wearing for about 2 weeks and seem to be helping some, wears all the time. Also does icing, icy hot, stretching of calves and hamstrings. Has pain at the end of the day from usual activities around the house, unable to go for walks or do any athletic or recreational activities without an increase in pain Prior Treatments and Tests none. Future Testing and Treatments Planned return to physician if PT not helpful PT-OP-C Subjective Start: 04/26/22 08:08 Freq: Status: Active Protocol: Document 06/23/22 15:15 SAK (Rec: 06/23/22 16:18 SAK [id number]) OP-PT Subjective Patient Comments Patient Comments A little pain when biking to PT, none as PT starts. Maybe that patch did something Compliant to HEP. Patient Reported Progress Improving PT-OP-D Balance Start: 04/26/22 08:08 Freq: Status: Active Protocol: Document 04/26/22 14:33 SAK (Rec: 04/27/22 13:41 SAK [id number]) Balance Tests Single Limb Standing Single Limb- Right 7 Single Limb- Left 8 Semi-Tandem Standing Semi-Tandem Standing Balance 12 PT-OP-H Neuro Start: 04/26/22 08:08 Freq: Status: Active Protocol: Document 04/26/22 14:33 [facility] (Rec: 04/27/22 13:41 [facility] [id number]) Sensation Evaluation Gross Sensation Gross Sensation WNL PT-OP-J Posture/Palpation/Skin Start: 04/26/22 08:08 Freq: Status: Active Protocol: Document 04/26/22 14:33 [facility] (Rec: 04/27/22 13:41 [facility] [id number]) Posture Evaluation Position Standing Ankle/Foot Posture (L) Pronated,(R) Pronated Foot Arch (L) Low Arch,(R) Low Arch Palpation Assessment Location tib post Palpation Location mac; Palpation Findings Tenderness Palpation Details tenderness into calf ankles honorio Palpation Location post/medial Palpation Findings Tenderness PT-OP-K Range of Motion Start: 04/26/22 08:08 Freq: Status: Active Protocol: Document 04/26/22 14:33 [facility] (Rec: 04/27/22 13:41 [facility] [id number]) Ankle and Foot Goniometric Range of Motion Ankle and Foot Right Active Testing Position Supine Dorsiflexion with Knee Extended 8 Plantarflexion 65 Inversion 40 Eversion 8 Left Active Dorsiflexion with Knee Extended 8 Plantarflexion 58 Inversion 40 Eversion 10 PT-OP-M Strength Start: 04/26/22 08:08 Freq: Status: Active Protocol: Document 04/26/22 14:33 [facility] (Rec: 04/27/22 13:41 [facility] [id number]) Ankle/Foot Strength Ankle and Foot Manual Muscle Testing Right Dorsiflexion (L4) 4 Good Plantarflexion (S1) 4 Good Inversion 4 Good Eversion (S1) 4- Good- Left Dorsiflexion (L4) 4+ Good+ Plantarflexion (S1) 4+ Good+ Inversion 4+ Good+ Eversion (S1) 4 Good PT-OP-Q Treatments Start: 04/26/22 08:08 Freq: Status: Active Protocol: Document 06/23/22 15:15 [facility] (Rec: 06/23/22 16:18 [facility] [id number]) Gym Equipment Shuttle Balance chains red Details tandem stand, SLS side to side , front/back Reps/Duration 10 Comments staggered stance and wt shift Therapeutic Exercises Sitting Exercises 4 way resisted ankle Sitting Exercise Name HEP short foot Sitting Exercise Name HEP foot inv/ev Sitting Exercise Name HEP ankle pumps Sitting Exercise Name HEP Standing Exercises towel scrunch Reps/Minutes 10x2 toe raises Standing Exercise Name HEP HC Stretch Equipment Used TRENA Reps/Minutes 2x30 Self-Care/Home Management Treatment Education Other Education do towel scrunch in standing as done in PT today, continue progression of walking, when doing standing exercises focus on lift of arch, ice after activity. PT-OP-R Modalities Start: 04/26/22 08:08 Freq: Status: Active Protocol: Document 06/23/22 15:15 [facility] (Rec: 06/23/22 16:18 SAK [id number]) Hot Pack/Cold Pack Treatment Cold Pack Location ice packs honorio feet Patient Position Hooklying Treatment Duration (minutes) 10 Patient Tolerance Good Iontophoresis Treatment left tarsal tunnel Treatment Medication Dexamethasone (-) Medication Amount (mL) (ml) 1 Medication Dosage 5 mg/ml Treatment Polarity negative Treatment Duration (minutes) 3 right tarsal tunnel Treatment Medication Dexamethasone (-) Medication Amount (mL) (ml) 1 Medication Dosage 5 mg/ml Treatment Polarity negative Treatment Duration (minutes) 3 Patient Tolerance Good Ultrasound Therapy Treatment left ankle Treatment Duration (minutes) 8 Patient Position Supine Coupling Medium Ultrasound Gel Frequency Setting (mHz) 3 Mode Setting Pulsed Duty Cycle 50% Intensity Setting (w/cm2) 1.2 Right Ankle Treatment Duration (minutes) 8 Patient Position Supine Coupling Medium Ultrasound Gel Frequency Setting (mHz) 3 Mode Setting Pulsed Duty Cycle 50% Intensity Setting (w/cm2) 1.2 Comments tarsal tunnel region to decrease inflam PT-OP-T Assessment and Plan Start: 04/26/22 08:08 Freq: Status: Active Protocol: Document 06/23/22 15:15 [facility] (Rec: 06/23/22 16:18 [facility] [id number]) Physical Therapy Assessment Goals pain bilateral ankles Impairment pain 4/10 Impairment unable to take walks or play ultimate frisbee [facility] Goal (LTG) Patient lisa be able to resume taking walks up to 2 miles and playing frisbee with pain no greater than 2/10 06/23/22: goal progress LTG Duration 07/26/22 strength and ROM impairment Impairment impaired strength and ROM bilateral feet and ankles Short Term Goal (STG) Patient will be instructed in progressive HEP consisting of strengthening and ROM STG Duration goal met [employer] Goal (LTG) Patient to demonstrate improvement in ROM to WNL bilateral feet and ankles, and strength 02/04. 06/23/22 LTG Duration 07/26/22 balance Impairment limited SLS and tandem stance ability Short Term Goal (STG) Patient will be able to tolerate SLS and tandem stand balance exercises without an increase in pain 06/23/22: goal met STG Duration goal met [employer] Tr[employer] Goal (LTG) Patient will be able to perform SLS honorio and tandem stand for 20 seconds without an increase in pain or LOB without UE support 06/23/22: goal met, can now do on shuttle balance machine LTG Duration goal met activity tolerance Impairment ankle foot ability measure Impairment ADL's 75%, sports subscale 65% Short Term Goal (STG) Improve score to 85% ADL's and 75% sports 06/23/22: goal progresss [facility] Goal (LTG) Improve ADL score to 100% and sports score to 90% 06/23/22: goal progress LTG Duration 07/26/22 Assessment Summary Assessment progressed towel scrunch to standing, cues with standing balance ex for muscular lift of arch per short foot exercise. Patient denied pain with all ex today, decreased pain overall. Still not able to resume all physical activity. Physical Therapy Plan Frequency and Duration Frequency of Treatment 2x/Week Duration of Treatment 12 weeks Plan of Care Start Date 04/26/22 Plan of Care End Date 07/26/22 Therapeutic Interventions Therapeutic Interventions Aquatic Therapy,Balance Training,Gait Training,Home Exercise Program,Manual Therapy,Neuromuscular Re- education,Patient/Caregiver Education,Self-Care/Home Management,Soft Tissue Mobilization,Taping, Therapeutic Activities, Therapeutic Exercises Modalities Cold Pack/Ice Massage,Electric Stimulation,Hot Packs, Infrared Therapy,Iontophoresis ,Ultrasound Next Visit Focus/Plan Next Note Type Treatment Note Next Visit Plan Continue progression of ther ex for strengthening, flexibility, foot stabilization, gait mechanics, pain management plus modalities and manual therapy PRN.
--- NOTE | 2022-07-12 16:06 | PT.OTN ---
Current Diagnoses Tarsal tunnel syndrome, bilateral lower limbs (07/12/22) Posterior tibial tendinitis, right leg (07/12/22) Pain in right foot (07/12/22) Physical Therapy Treatment Note PT-OP-A Visit Information Start: 04/26/22 08:08 Freq: Status: Active Protocol: Document 07/12/22 15:15 DCW (Rec: 07/12/22 16:06 DCW [id number]) Out-Patient Physical Therapy Visit Information Visit Information Visit Type Treatment Note Visit Start Time 15:15 Visit Stop Time 16:00 Total Visit Minutes 45 Visit Number 7 Evaluation Information Evaluation Date 04/26/22 PT-OP-B Current Condition Start: 04/26/22 08:08 Freq: Status: Active Protocol: Document 06/23/22 15:15 SAK (Rec: 06/23/22 16:18 SAK [id number]) Current Condition History of Current Condition Onset Date 2020 Current Complaints bilateral medial ankle pain History of Current Condition In July 2021 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 28 y/o brother has had tarsal tunnel syndrome that required surgery. Patient has gotten custom orthotics made at [employer], wearing for about 2 weeks and seem to be helping some, wears all the time. Also does icing, icy hot, stretching of calves and hamstrings. Has pain at the end of the day from usual activities around the house, unable to go for walks or do any athletic or recreational activities without an increase in pain Prior Treatments and Tests none. Future Testing and Treatments Planned return to physician if PT not helpful PT-OP-C Subjective Start: 04/26/22 08:08 Freq: Status: Active Protocol: Document 07/12/22 15:15 DCW (Rec: 07/12/22 16:06 DCW [id number]) OP-PT Subjective Patient Comments Patient Comments Has been walking more, able to go farther recently. PT-OP-D Balance Start: 04/26/22 08:08 Freq: Status: Active Protocol: Document 04/26/22 14:33 SAK (Rec: 04/27/22 13:41 SAK [id number]) Balance Tests Single Limb Standing Single Limb- Right 7 Single Limb- Left 8 Semi-Tandem Standing Semi-Tandem Standing Balance 12 PT-OP-H Neuro Start: 04/26/22 08:08 Freq: Status: Active Protocol: Document 04/26/22 14:33 [facility] (Rec: 04/27/22 13:41 [facility] [id number]) Sensation Evaluation Gross Sensation Gross Sensation WNL PT-OP-J Posture/Palpation/Skin Start: 04/26/22 08:08 Freq: Status: Active Protocol: Document 04/26/22 14:33 [facility] (Rec: 04/27/22 13:41 [facility] [id number]) Posture Evaluation Position Standing Ankle/Foot Posture (L) Pronated,(R) Pronated Foot Arch (L) Low Arch,(R) Low Arch Palpation Assessment Location tib post Palpation Location mac; Palpation Findings Tenderness Palpation Details tenderness into calf ankles honorio Palpation Location post/medial Palpation Findings Tenderness PT-OP-K Range of Motion Start: 04/26/22 08:08 Freq: Status: Active Protocol: Document 04/26/22 14:33 [facility] (Rec: 04/27/22 13:41 [facility] [id number]) Ankle and Foot Goniometric Range of Motion Ankle and Foot Right Active Testing Position Supine Dorsiflexion with Knee Extended 8 Plantarflexion 65 Inversion 40 Eversion 8 Left Active Dorsiflexion with Knee Extended 8 Plantarflexion 58 Inversion 40 Eversion 10 PT-OP-M Strength Start: 04/26/22 08:08 Freq: Status: Active Protocol: Document 04/26/22 14:33 [facility] (Rec: 04/27/22 13:41 [facility] [id number]) Ankle/Foot Strength Ankle and Foot Manual Muscle Testing Right Dorsiflexion (L4) 4 Good Plantarflexion (S1) 4 Good Inversion 4 Good Eversion (S1) 4- Good- Left Dorsiflexion (L4) 4+ Good+ Plantarflexion (S1) 4+ Good+ Inversion 4+ Good+ Eversion (S1) 4 Good PT-OP-Q Treatments Start: 04/26/22 08:08 Freq: Status: Active Protocol: Document 07/12/22 15:15 DCW (Rec: 07/12/22 16:06 DCW [id number]) Gym Equipment Shuttle Balance chains red Details EO/EC, SLS, side to side, front/back Reps/Duration 10 Comments staggered stance and wt shift Manual Therapy Treatment Soft Tissue Mobilization medial gastroc Body Location bilateral medial gastroc Mobilization Type Strumming,Sustained Pressure, Trigger Point Release tarsel tunnel Body Location bilateral Mobilization Type Cross-Friction Intensity/Depth Moderate Body Position long sit PT-OP-R Modalities Start: 04/26/22 08:08 Freq: Status: Active Protocol: Document 07/12/22 15:15 DCW (Rec: 07/12/22 16:06 DCW [id number]) Ultrasound Therapy Treatment left ankle Treatment Duration (minutes) 6 Patient Position Supine Coupling Medium Ultrasound Gel Frequency Setting (mHz) 3 Mode Setting Pulsed Duty Cycle 50% Intensity Setting (w/cm2) 1.2 Right Ankle Treatment Duration (minutes) 6 Patient Position Supine Coupling Medium Ultrasound Gel Frequency Setting (mHz) 3 Mode Setting Pulsed Duty Cycle 50% Intensity Setting (w/cm2) 1.2 Comments tarsal tunnel region to decrease inflam PT-OP-T Assessment and Plan Start: 04/26/22 08:08 Freq: Status: Active Protocol: Document 07/12/22 15:15 DCW (Rec: 07/12/22 16:06 DCW [id number]) Physical Therapy Assessment Impairments Impairments Activity Tolerance,Balance, Pain,ROM,Strength Goals pain bilateral ankles Impairment pain 4/10 Impairment unable to take walks or play ultimate [employer] [facility] Goal (LTG) Patient lisa be able to resume taking walks up to 2 miles and playing frisbee with pain no greater than 2/10 06/23/22: goal progress LTG Duration 07/26/22 strength and ROM impairment Impairment impaired strength and ROM bilateral feet and ankles Short Term Goal (STG) Patient will be instructed in progressive HEP consisting of strengthening and ROM STG Duration goal met [facility] Goal (LTG) Patient to demonstrate improvement in ROM to WNL bilateral feet and ankles, and strength 5/5. 06/23/22 LTG Duration 07/26/22 balance Impairment limited SLS and tandem stance ability Short Term Goal (STG) Patient will be able to tolerate SLS and tandem stand balance exercises without an increase in pain 06/23/22: goal met STG Duration goal met [facility] Goal (LTG) Patient will be able to perform SLS honorio and tandem stand for 20 seconds without an increase in pain or LOB without UE support 06/23/22: goal met, can now do on shuttle balance machine LTG Duration goal met activity tolerance Impairment ankle foot ability measure Impairment ADL's 75%, sports subscale 65% Short Term Goal (STG) Improve score to 85% ADL's and 75% sports 06/23/22: goal progresss [facility] Goal (LTG) Improve ADL score to 100% and sports score to 90% 06/23/22: goal progress LTG Duration 07/26/22 Assessment Summary Assessment Pt appears to be progressing well, doing much better with walking without pain. Has not yet done much more than just walking, would like to get back more to increased physical activity. Clinic ran out of [place] patches, so this was skipped today. Physical Therapy Plan Frequency and Duration Frequency of Treatment 2x/Week Plan of Care Start Date 04/26/22 Plan of Care End Date 07/26/22 Therapeutic Interventions Therapeutic Interventions Aquatic Therapy,Balance Training,Gait Training,Home Exercise Program,Manual Therapy,Neuromuscular Re- education,Patient/Caregiver Education,Self-Care/Home Management,Soft Tissue Mobilization,Taping, Therapeutic Activities, Therapeutic Exercises Modalities Cold Pack/Ice Massage,Electric Stimulation,Hot Packs, Infrared Therapy,Iontophoresis ,Ultrasound
--- NOTE | 2022-08-03 14:58 | PT-OP ANOTE ---
Message left notifying pt of missed appointment & informed pt of possible charge for DNS appointment. Reminded pt of next scheduled visit being the last visit scheduled.
--- NOTE | 2022-08-04 16:04 | PT.OTRE ---
Current Diagnoses Tarsal tunnel syndrome, bilateral lower limbs (08/04/22) Posterior tibial tendinitis, right leg (08/04/22) Pain in right foot (08/04/22) Past Medical History (Last Updated 05/14/22 @ 08:11 by Naveen Vidal MD) Carpal tunnel syndrome Insomnia Tarsal tunnel syndrome Visit Care Team Role Provider Type Naveen Vidal MD Family Provider Physician Primary Care Provider Specialty: Family Practice Address: [address] [place] [address], [address] Email: [email or web address] Navya Min DPM Attending Provider Physician Referring Provider Specialty: Orthopedic Surgery Podiatry Address: [address] [place] [address], [id number] Email: [email or web address] Physical Therapy Re-Evaluation PT-OP-A Visit Information Start: 04/26/22 08:08 Freq: Status: Active Protocol: Document 08/04/22 14:29 SAK (Rec: 08/04/22 16:02 SAK [id number]) Out-Patient Physical Therapy Visit Information Visit Information Visit Type Treatment Note Visit Start Time 14:30 Visit Stop Time 15:15 Total Visit Minutes 45 Visit Number 8 Evaluation Information Evaluation Date 04/26/22 PT-OP-B Current Condition Start: 04/26/22 08:08 Freq: Status: Active Protocol: Document 06/23/22 15:15 SAK (Rec: 06/23/22 16:18 [facility] [id number]) Current Condition History of Current Condition Onset Date 2020 Current Complaints bilateral medial ankle pain History of Current Condition In July 2021 started ultimate [employer], got whitley splints, stopped playing [employer] but pain seemed to have morphed into tarsal tunnel syndrome per physician diagnosis. 28 y/o brother has had tarsal tunnel syndrome that required surgery. Patient has gotten custom orthotics made at [facility], wearing for about 2 weeks and seem to be helping some, wears all the time. Also does icing, icy hot, stretching of calves and hamstrings. Has pain at the end of the day from usual activities around the house, unable to go for walks or do any athletic or recreational activities without an increase in pain Prior Treatments and Tests none. Future Testing and Treatments Planned return to physician if PT not helpful PT-OP-C Subjective Start: 04/26/22 08:08 Freq: Status: Active Protocol: Document 08/04/22 14:29 SAK (Rec: 08/04/22 16:02 [facility] [id number]) OP-PT Subjective Patient Comments Patient Comments Improved after PT, but visits so spread out hard to tell progress. Is able to walk further . Pain worst in am. Hasn't been able to do any recreational activities. Will be leaving for [place] for 2 months this weekend. Tuesday will be his last PT visit. PT-OP-D Balance Start: 04/26/22 08:08 Freq: Status: Active Protocol: Document 04/26/22 14:33 [facility] (Rec: 04/27/22 13:41 [facility] [id number]) Balance Tests Single Limb Standing Single Limb- Right 7 Single Limb- Left 8 Semi-Tandem Standing Semi-Tandem Standing Balance 12 PT-OP-H Neuro Start: 04/26/22 08:08 Freq: Status: Active Protocol: Document 04/26/22 14:33 [facility] (Rec: 04/27/22 13:41 [facility] [id number]) Sensation Evaluation Gross Sensation Gross Sensation WNL PT-OP-J Posture/Palpation/Skin Start: 04/26/22 08:08 Freq: Status: Active Protocol: Document 04/26/22 14:33 [facility] (Rec: 04/27/22 13:41 [facility] [id number]) Posture Evaluation Position Standing Ankle/Foot Posture (L) Pronated,(R) Pronated Foot Arch (L) Low Arch,(R) Low Arch Palpation Assessment Location tib post Palpation Location mac; Palpation Findings Tenderness Palpation Details tenderness into calf ankles honorio Palpation Location post/medial Palpation Findings Tenderness PT-OP-K Range of Motion Start: 04/26/22 08:08 Freq: Status: Active Protocol: Document 04/26/22 14:33 [facility] (Rec: 04/27/22 13:41 [facility] [id number]) Ankle and Foot Goniometric Range of Motion Ankle and Foot Measured in Degrees Right Active Testing Position Supine Dorsiflexion with Knee Extended 8 Plantarflexion 65 Inversion 40 Eversion 8 Left Active Dorsiflexion with Knee Extended 8 Plantarflexion 58 Inversion 40 Eversion 10 PT-OP-M Strength Start: 04/26/22 08:08 Freq: Status: Active Protocol: Document 04/26/22 14:33 [facility] (Rec: 04/27/22 13:41 [facility] [id number]) Ankle/Foot Strength Ankle and Foot Manual Muscle Testing Right Dorsiflexion (L4) 4 Good Plantarflexion (S1) 4 Good Inversion 4 Good Eversion (S1) 4- Good- Left Dorsiflexion (L4) 4+ Good+ Plantarflexion (S1) 4+ Good+ Inversion 4+ Good+ Eversion (S1) 4 Good PT-OP-Q Treatments Start: 04/26/22 08:08 Freq: Status: Active Protocol: Document 08/04/22 14:29 [facility] (Rec: 08/04/22 16:02 [facility] [id number]) Gym Equipment Shuttle Balance chains red Details EO/EC, SLS, side to side, front/back Reps/Duration 10 Comments staggered stance and wt shift Therapeutic Exercises Supine Exercises tibial nerve glide Reps/Minutes 5x Sitting Exercises 4 way resisted ankle Sitting Exercise Name HEP short foot Sitting Exercise Name HEP foot inv/ev Sitting Exercise Name HEP ankle pumps Sitting Exercise Name HEP BAPS board Equipment Used L4 Reps/Minutes 10x HC stretch Equipment Used strap Reps/Minutes 2x30 Standing Exercises towel scrunch Standing Exercise Name HEP toe raises Standing Exercise Name HEP HC Stretch Standing Exercise Name HEP tandem stand Standing Exercise Name HEP SLS Standing Exercise Name HEP heel raises Standing Exercise Name HEP Manual Therapy Treatment Soft Tissue Mobilization medial gastroc Body Location bilateral medial gastroc Mobilization Type Strumming,Sustained Pressure, Trigger Point Release tarsel tunnel Body Location bilateral Mobilization Type Cross-Friction Intensity/Depth Moderate Body Position long sit Self-Care/Home Management Treatment Education Other Education HO for nerve glide, continue HEP, ice. Instructe in use of rolling pin and massage tools for self -massage calf, ant tib, use of tennis ball bottom of foot. Sleeping position: rolled up towels at knees/thighs to prevent excess ER, consider night splint for neutral foot positioning. PT-OP-R Modalities Start: 04/26/22 08:08 Freq: Status: Active Protocol: Document 08/04/22 14:29 [facility] (Rec: 08/04/22 16:02 [facility] [id number]) Hot Pack/Cold Pack Treatment Cold Pack Comments patient to ice at home Infrared Treatment Treatment honorio feet Duration (Minutes) 12 Body Position Hooklying Program or Protocal chronic, muscle tendon ligament pain, pulsed low Comments 6 positions each foot distal to proximal Iontophoresis Treatment left tarsal tunnel Treatment Medication Dexamethasone (-) Medication Amount (mL) (ml) 1 Medication Dosage 5 mg/ml Treatment Polarity negative Treatment Duration (minutes) 3 right tarsal tunnel Treatment Medication Dexamethasone (-) Medication Amount (mL) (ml) 1 Medication Dosage 5 mg/ml Treatment Polarity negative Treatment Duration (minutes) 3 Patient Tolerance Good PT-OP-T Assessment and Plan Start: 04/26/22 08:08 Freq: Status: Active Protocol: Document 08/04/22 14:29 SAK (Rec: 08/04/22 16:02 SAK [id number]) Physical Therapy Assessment Impairments Impairments Activity Tolerance,Balance, Pain,ROM,Strength Goals pain bilateral ankles Impairment pain 4/10 Impairment unable to take walks or play ultimate frisbee [employer] Converter Operator Goal (LTG) Patient lisa be able to resume taking walks up to 2 miles and playing frisbee with pain no greater than 2/10 06/23/22: goal progress 08/04/22: Patient can take walks with minimal pain, can throw frisbee without pain, hasn't tried running yet LTG Duration 08/11/22 strength and ROM impairment Impairment impaired strength and ROM bilateral feet and ankles Short Term Goal (STG) Patient will be instructed in progressive HEP consisting of strengthening and ROM STG Duration goal met [employer] Converter Operator Goal (LTG) Patient to demonstrate improvement in ROM to WNL bilateral feet and ankles, and strength 5/5. 06/23/22: goal progress 08/04/22: ROM WNL, strength 5/5 . LTG Duration 08/11/22 balance Impairment limited SLS and tandem stance ability Short Term Goal (STG) Patient will be able to tolerate SLS and tandem stand balance exercises without an increase in pain 06/23/22: goal met STG Duration goal met [facility] Goal (LTG) Patient will be able to perform SLS honorio and tandem stand for 20 seconds without an increase in pain or LOB without UE support 06/23/22: goal met, can now do on shuttle balance machine LTG Duration goal met activity tolerance Impairment ankle foot ability measure Impairment ADL's 75%, sports subscale 65% Short Term Goal (STG) Improve score to 85% ADL's and 75% sports 06/23/22: goal progresss 08/04/22: ADL score 75%, sports 50% [employer] Converter Operator Goal (LTG) Improve ADL score to 100% and sports score to 90% 06/23/22: goal progress 08/04/22: ADL 75%, sports 50% LTG Duration 08/11/22 Assessment Summary Assessment Patient experiences some relief after PT per his report but is still very limited in function. Recovery has been complicated by his medical surgery mid way through our treatment period and he has had limited visits. He will be away for 2 months after next PT visit and is aware he will need a new prescription to be able to return for further PT. Updated his HEP with addition of tibial nerve glide, and was instructed in bed positioning due to his c/o worst pain in am. Trial cold laser instead of ultrasound today. He appears to benefit from iontophoresis to the tarsal tunnels. He is diligent with his HEP. He is able to walk further, is wearing orthotics, but has not yet attempted to run (wants to return to [facility]) . Physical Therapy Plan Frequency and Duration Frequency of Treatment 2x/Week Duration of treatment (weeks) 1 Plan of Care Start Date 08/04/22 Plan of Care End Date 08/11/22 Therapeutic Interventions Therapeutic Interventions Aquatic Therapy,Balance Training,Gait Training,Home Exercise Program,Manual Therapy,Neuromuscular Re- education,Patient/Caregiver Education,Self-Care/Home Management,Soft Tissue Mobilization,Taping, Therapeutic Activities, Therapeutic Exercises Modalities Cold Pack/Ice Massage,Electric Stimulation,Hot Packs, Infrared Therapy,Iontophoresis ,Ultrasound Next Visit Focus/Plan Next Note Type Discharge Summary Next Visit Plan Assess response to cold laser, tibial nerve glides. Further review of HEP, self-massage as indicated. Continue modalities. Discharge to self -management after next visit as patient will be gone x 2 months. He was informed he would need a new prescription if he was wanting to come back for further PT. [id number]
--- NOTE | 2022-08-04 16:04 | PT.OPPOC ---
Physical, Occupational & Speech Therapy At [facility] Current Diagnoses Tarsal tunnel syndrome, bilateral lower limbs (08/04/22) Posterior tibial tendinitis, right leg (08/04/22) Pain in right foot (08/04/22) Visit Care Team Role Provider Type Naveen Vidal MD Family Provider Physician Primary Care Provider Specialty: Family Practice Address: [address] [place] [address], [address] Email: [email or web address] Navya Min DPM Attending Provider Physician Referring Provider Specialty: Orthopedic Surgery Podiatry Address: [address] [place] [address], [address] Email: [email or web address] Plan Of Care PT-OP-T Assessment and Plan Start: 04/26/22 08:08 Freq: Status: Active Protocol: Document 08/04/22 14:29 [facility] (Rec: 08/04/22 16:02 [facility] [id number]) Physical Therapy Assessment Impairments Impairments Activity Tolerance,Balance, Pain,ROM,Strength Goals pain bilateral ankles Impairment pain 4/10 Impairment unable to take walks or play ultimate frisbee Half-Way Goal (LTG) Patient lisa be able to resume taking walks up to 2 miles and playing frisbee with pain no greater than 2/10 06/23/22: goal progress 08/04/22: Patient can take walks with minimal pain, can throw frisbee without pain, hasn't tried running yet LTG Duration 08/11/22 strength and ROM impairment Impairment impaired strength and ROM bilateral feet and ankles Short Term Goal (STG) Patient will be instructed in progressive HEP consisting of strengthening and ROM STG Duration goal met Half-Way Goal (LTG) Patient to demonstrate improvement in ROM to WNL bilateral feet and ankles, and strength 5/5. 06/23/22: goal progress 08/04/22: ROM WNL, strength 5/5 . LTG Duration 08/11/22 balance Impairment limited SLS and tandem stance ability Short Term Goal (STG) Patient will be able to tolerate SLS and tandem stand balance exercises without an increase in pain 06/23/22: goal met STG Duration goal met Digital Associate Goal (LTG) Patient will be able to perform SLS honorio and tandem stand for 20 seconds without an increase in pain or LOB without UE support 06/23/22: goal met, can now do on shuttle balance machine LTG Duration goal met activity tolerance Impairment ankle foot ability measure Impairment ADL's 75%, sports subscale 65% Short Term Goal (STG) Improve score to 85% ADL's and 75% sports 06/23/22: goal progresss 08/04/22: ADL score 75%, sports 50% Half-Way Goal (LTG) Improve ADL score to 100% and sports score to 90% 06/23/22: goal progress 08/04/22: ADL 75%, sports 50% LTG Duration 08/11/22 Assessment Summary Assessment Patient experiences some relief after PT per his report but is still very limited in function. Recovery has been complicated by his medical surgery mid way through our treatment period and he has had limited visits. He will be away for 2 months after next PT visit and is aware he will need a new prescription to be able to return for further PT. Updated his HEP with addition of tibial nerve glide, and was instructed in bed positioning due to his c/o worst pain in am. Trial cold laser instead of ultrasound today. He appears to benefit from iontophoresis to the tarsal tunnels. He is diligent with his HEP. He is able to walk further, is wearing orthotics, but has not yet attempted to run (wants to return to [facility]) . Physical Therapy Plan Frequency and Duration Frequency of Treatment 2x/Week Duration of treatment (weeks) 1 Plan of Care Start Date 08/04/22 Plan of Care End Date 08/11/22 Therapeutic Interventions Therapeutic Interventions Aquatic Therapy,Balance Training,Gait Training,Home Exercise Program,Manual Therapy,Neuromuscular Re- education,Patient/Caregiver Education,Self-Care/Home Management,Soft Tissue Mobilization,Taping, Therapeutic Activities, Therapeutic Exercises Modalities Cold Pack/Ice Massage,Electric Stimulation,Hot Packs, Infrared Therapy,Iontophoresis ,Ultrasound Next Visit Focus/Plan Next Note Type Discharge Summary Next Visit Plan Assess response to cold laser, tibial nerve glides. Further review of HEP, self-massage as indicated. Continue modalities. Discharge to self -management after next visit as patient will be gone x 2 months. He was informed he would need a new prescription if he was wanting to come back for further PT. Plan of Care Dates Plan of Care Start Date 08/04/22 Plan of Care End Date 08/11/22 Electronically Signed by: Radha Pinedo, PT 08/04/22 0752 If you are in agreement with this Plan of Care, please return a signed and dated copy. I have reviewed this Plan of Care and certify that the skilled therapy services above are required to meet the patient?s needs. Physician Signature Date Printed Name and Credentials Clinical Instructor Signature Printed Name and Credentials
--- NOTE | 2022-08-06 15:03 | PT.OTN ---
Current Diagnoses Tarsal tunnel syndrome, bilateral lower limbs (08/06/22) Posterior tibial tendinitis, right leg (08/06/22) Pain in right foot (08/06/22) Physical Therapy Treatment Note PT-OP-A Visit Information Start: 04/26/22 08:08 Freq: Status: Active Protocol: Document 08/06/22 13:47 LRN (Rec: 08/06/22 14:35 LRN [id number]) Out-Patient Physical Therapy Visit Information Visit Information Visit Type Treatment Note Visit Start Time 13:47 Visit Stop Time 14:32 Total Visit Minutes 45 Visit Number 9 Evaluation Information Evaluation Date 04/26/22 PT-OP-B Current Condition Start: 04/26/22 08:08 Freq: Status: Active Protocol: Document 06/23/22 15:15 SAK (Rec: 06/23/22 16:18 SAK [id number]) Current Condition History of Current Condition Onset Date 2020 Current Complaints bilateral medial ankle pain History of Current Condition In July 2021 started ultimate [employer], got whitley splints, stopped playing [employer] but pain seemed to have morphed into tarsal tunnel syndrome per physician diagnosis. 28 y/o brother has had tarsal tunnel syndrome that required surgery. Patient has gotten custom orthotics made at [employer] [facility] [employer], wearing for about 2 weeks and seem to be helping some, wears all the time. Also does icing, icy hot, stretching of calves and hamstrings. Has pain at the end of the day from usual activities around the house, unable to go for walks or do any athletic or recreational activities without an increase in pain Prior Treatments and Tests none. Future Testing and Treatments Planned return to physician if PT not helpful PT-OP-C Subjective Start: 04/26/22 08:08 Freq: Status: Active Protocol: Document 08/06/22 13:47 LRN (Rec: 08/06/22 14:35 LRN [id number]) OP-PT Subjective Patient Comments Patient Comments [place] 2 [place]; therefore no more appts scheduled. Flying out tomorrow. Feet don't hurt with walking <15'. PT-OP-D Balance Start: 04/26/22 08:08 Freq: Status: Active Protocol: Document 04/26/22 14:33 SAK (Rec: 04/27/22 13:41 SAK [id number]) Balance Tests Single Limb Standing Single Limb- Right 7 Single Limb- Left 8 Semi-Tandem Standing Semi-Tandem Standing Balance 12 PT-OP-H Neuro Start: 04/26/22 08:08 Freq: Status: Active Protocol: Document 04/26/22 14:33 [facility] (Rec: 04/27/22 13:41 [facility] [id number]) Sensation Evaluation Gross Sensation Gross Sensation WNL PT-OP-J Posture/Palpation/Skin Start: 04/26/22 08:08 Freq: Status: Active Protocol: Document 04/26/22 14:33 [facility] (Rec: 04/27/22 13:41 [facility] [id number]) Posture Evaluation Position Standing Ankle/Foot Posture (L) Pronated,(R) Pronated Foot Arch (L) Low Arch,(R) Low Arch Palpation Assessment Location tib post Palpation Location mac; Palpation Findings Tenderness Palpation Details tenderness into calf ankles honorio Palpation Location post/medial Palpation Findings Tenderness PT-OP-K Range of Motion Start: 04/26/22 08:08 Freq: Status: Active Protocol: Document 08/06/22 13:47 LRN (Rec: 08/06/22 14:35 LRN [id number]) Ankle and Foot Goniometric Range of Motion Ankle and Foot Right Active Testing Position Supine Dorsiflexion with Knee Extended 8 Plantarflexion 64 Inversion 47 Eversion 10 Left Active Dorsiflexion with Knee Extended 8 Plantarflexion 60 Inversion 33 Eversion 12 PT-OP-M Strength Start: 04/26/22 08:08 Freq: Status: Active Protocol: Document 04/26/22 14:33 [facility] (Rec: 04/27/22 13:41 [facility] [id number]) Ankle/Foot Strength Ankle and Foot Manual Muscle Testing Right Dorsiflexion (L4) 4 Good Plantarflexion (S1) 4 Good Inversion 4 Good Eversion (S1) 4- Good- Left Dorsiflexion (L4) 4+ Good+ Plantarflexion (S1) 4+ Good+ Inversion 4+ Good+ Eversion (S1) 4 Good PT-OP-Q Treatments Start: 04/26/22 08:08 Freq: Status: Active Protocol: Document 08/06/22 13:47 LRN (Rec: 08/06/22 14:35 LRN [id number]) Gym Equipment Shuttle Balance chains red Details EO/EC, SLS, side to side, front/back Reps/Duration 23 Comments staggered stance and wt shift Therapeutic Exercises Sitting Exercises Ankle AROM Sitting Exercise Name Ankle AROM Side bilateral Comments AROM taken Ankle stretch Sitting Exercise Name Stretch PF & EV, f/b active stretch Side right 4 way resisted ankle Sitting Exercise Name 4 way resisted ankle ROM Side bilateral Comments MMT taken 5/5 bilaterally Other Exercises Child's pose Other Exercise Name Child's pose for ankle PF stretch Side bilateral Reps/Minutes 2' PT-OP-R Modalities Start: 04/26/22 08:08 Freq: Status: Active Protocol: Document 08/06/22 13:47 LRN (Rec: 08/06/22 14:35 LRN [id number]) Iontophoresis Treatment left tarsal tunnel Treatment Medication Dexamethasone (-) Medication Amount (mL) (ml) 1 Medication Dosage 5 mg/ml Treatment Polarity negative Treatment Duration (minutes) 3 right tarsal tunnel Treatment Medication Dexamethasone (-) Medication Amount (mL) (ml) 1 Medication Dosage 5 mg/ml Treatment Polarity negative Treatment Duration (minutes) 3 Patient Tolerance Good PT-OP-T Assessment and Plan Start: 04/26/22 08:08 Freq: Status: Active Protocol: Document 08/06/22 13:47 LRN (Rec: 08/06/22 14:35 LRN [id number]) Physical Therapy Assessment Goals pain bilateral ankles Impairment pain 4/10 Impairment unable to take walks or play ultimate frisbee Crushing Foreman Goal (LTG) Patient lisa be able to resume taking walks up to 2 miles and playing frisbee with pain no greater than 2/10 06/23/22: goal progress 08/04/22: Patient can take walks with minimal pain, can throw frisbee without pain, hasn't tried running yet. 08/06/22: Walking 5 blocks w/o pain with pain max 4/10; Sleeping very painful, hasn't tried playing Frisbee but pt doubtful can be done due to walking is painful. LTG Duration 08/11/22 (08/06/22: NOT MET GOAL, pain at ankle w/gt>5 blocks) strength and ROM impairment Impairment impaired strength and ROM bilateral feet and ankles Short Term Goal (STG) Patient will be instructed in progressive HEP consisting of strengthening and ROM STG Duration goal met Shelter Goal (LTG) Patient to demonstrate improvement in ROM to WNL bilateral feet and ankles, and strength 5/5. 06/23/22: goal progress 08/04/22: ROM WNL, strength 5/5 . 08/06/22: Ankle EV is 10 deg's R, 12 deg's L, strength is 5/ 5. LTG Duration 08/11/22 (08/06/22: MET except R ankle EV is less than L ankle) balance Impairment limited SLS and tandem stance ability Short Term Goal (STG) Patient will be able to tolerate SLS and tandem stand balance exercises without an increase in pain 06/23/22: goal met STG Duration goal met Crushing Foreman Goal (LTG) Patient will be able to perform SLS honorio and tandem stand for 20 seconds without an increase in pain or LOB without UE support 06/23/22: goal met, can now do on shuttle balance machine LTG Duration goal met activity tolerance Impairment ankle foot ability measure Impairment ADL's 75%, sports subscale 65% Short Term Goal (STG) Improve score to 85% ADL's and 75% sports 06/23/22: goal progresss 08/04/22: ADL score 75%, sports 50% STG Duration (08/06/22: Goal Not Met) Shelter Goal (LTG) Improve ADL score to 100% and sports score to 90% 06/23/22: goal progress 08/04/22: ADL 75%, sports 50% LTG Duration 08/11/22 (08/06/22: Goal Not Met) Assessment Summary Assessment Pt has recieved some relief of ankle/foot pain after PT, but is still very limited in function. Recovery has been complicated by his medical surgery mid way through our treatment period and he has had limited visits. Pt has been issued a HEP and was instructed in bed positioning due to his c/o worst pain in am. He appears to benefit from iontophoresis to the tarsal tunnels. He has not yet attempted to run and play Frisbee due to pain with walking > 15 minutes. He is walking further without pain, but limitations still persist. He will need a new prescription to be able to return for further PT. Pt is being discharged today to his HEP. Physical Therapy Plan Discharge Physical Therapy Discharge Reasons Patient Request Discharge Comments Pt leaving the area for 2 months and understands if further physical therapy is needed, to seek a new referral .
== END 2022-09-28 08:51 | disposition home or self-care (01) ==
LOC: PHYS 13:45
PROVIDERS: Family Provider Family Medicine; PCP Family Medicine; Referring Provider Podiatrist; Visit Provider Podiatrist
DX: G57.53 Tarsal tunnel syndrome, bilateral lower limbs (principal); M76.821 Posterior tibial tendinitis, right leg; M79.671 Pain in right foot
CPT/HCPCS: 97010; 97035; 97110; 97112; 97140; 97162; 97535

== ENCOUNTER → 2023-05-14 08:42 | Outpatient (CLI) | payer BC, SELFPAY ==
[2023-05-14 11:10] LABS: Add Manual Diff / Slide Review NO; Basophils Absolute Auto 100 /uL (0-100); Basophils Percent Auto 0.9 % (0-2); Eosinophils Absolute Auto 100 /uL (0-450); Eosinophils Percent Auto 1.9 % (2-4); Hematocrit 41.5 % (36-46); Hemoglobin 14.4 g/dL (12.0-16.0); Lymphocytes Absolute Auto 1600 /uL (1100-4500); Lymphocytes Percent Auto 24.4 % (25-40); Mean Corpuscular HGB Conc 34.7 % (30-36); Mean Corpuscular Hemoglobin 28.6 PG (26-34); Mean Corpuscular Volume 82.4 fL (80-100); Monocytes Absolute Auto 400 /uL (0-900); Monocytes Percent Auto 5.6 % (3-14); Neutrophils Absolute Auto 4500 /uL (1500-7000); Neutrophils Percent Auto 67.2 % (50-75); Platelet Count 329 X10^3/uL (150-400); Red Blood Cell Count 5.03 X10^6/uL (4.0-5.2); Red Cell Distribution Width 12.5 % (11.6-14.8); White Blood Cell Count 6.7 X10^3/uL (4.5-11.0)
[2023-05-14 11:28] LABS: Alanine Aminotransferase 20 IU/L (<35); Albumin 4.4 g/dL (3.5-5.0); Albumin Globulin Ratio 1.5 (1.0-2.8); Alkaline Phosphatase 66 U/L (38-126); Aspartate Aminotransferase 20 IU/L (14-36); Bilirubin Total 0.3 mg/dL (0.2-1.3); Blood Urea Nitrogen 14 mg/dL (7-17); Calcium 9.3 mg/dL (8.4-10.2); Carbon Dioxide 22 mmol/L (22-32); Chloride 107 mmol/L (98-107); Cholesterol 181 mg/dL (140-199); Estimated Glomerular Filt Rate > 60 mL/min (>60); Globulin 2.9 g/dL (1.7-4.1); Glucose 87 mg/dL (70-100); HDL Cholesterol 40 mg/dL (40-60); HEMOLYSIS < 15 (0-50); LDL Cholesterol Calculated 121 mg/dL (<100); Potassium 4.2 mmol/L (3.4-5.1); Sodium 140 mmol/L (137-145); Total Protein 7.3 g/dL (6.3-8.2); Triglycerides 100 mg/dL (35-150)
[2023-05-14 11:57] LABS: TSH w/ Reflex to FT4 2.19 uIU/mL (0.47-4.68)
[2023-05-20 18:41] LABS: Percent Free Testosterone 3.25 % (0.50-2.80); Testosterone Total 547.6 ng/dL (10.0-55.0)
== END ==
PROVIDERS: Family Provider Family Medicine; PCP Family Medicine; Referring Provider Family Medicine; Visit Provider Family Medicine
DX: D50.9 Iron deficiency anemia, unspecified (principal); E78.6 Lipoprotein deficiency; F64.0 Transsexualism; G47.00 Insomnia, unspecified; Z79.899 Other long term (current) drug therapy
CPT/HCPCS: 36415; 80053; 80061; 84402; 84403; 84443; 85025

== ENCOUNTER → 2024-05-18 09:10 | Outpatient (CLI) | payer BC, SELFPAY ==
[2024-05-18 09:54] LABS: Add Manual Diff / Slide Review NO; Basophils Absolute Auto 100 /uL (0-100); Basophils Percent Auto 0.8 % (0-2); Eosinophils Absolute Auto 100 /uL (0-450); Eosinophils Percent Auto 1.7 % (2-4); Hematocrit 44.2 % (36-46); Hemoglobin 15.3 g/dL (12.0-16.0); Lymphocytes Absolute Auto 1700 /uL (1100-4500); Mean Corpuscular HGB Conc 34.6 % (30-36); Mean Corpuscular Hemoglobin 28.9 PG (26-34); Mean Corpuscular Volume 83.6 fL (80-100); Monocytes Absolute Auto 400 /uL (0-900); Monocytes Percent Auto 6.5 % (3-14); Neutrophils Absolute Auto 4000 /uL (1500-7000); Platelet Count 265 X10^3/uL (150-400); Red Blood Cell Count 5.28 X10^6/uL (4.0-5.2); Red Cell Distribution Width 13.2 % (11.6-14.8); White Blood Cell Count 6.2 X10^3/uL (4.5-11.0)
[2024-05-18 10:05] LABS: Alanine Aminotransferase 18 IU/L (<35); Albumin 4.5 g/dL (3.5-5.0); Albumin Globulin Ratio 1.7 (1.0-2.8); Alkaline Phosphatase 103 U/L (38-126); Aspartate Aminotransferase 21 IU/L (14-36); BUN Creatinine Ratio 17.9 (6-22); Bilirubin Total 0.6 mg/dL (0.2-1.3); Blood Urea Nitrogen 15 mg/dL (7-17); Calcium 9.4 mg/dL (8.4-10.2); Carbon Dioxide 19 mmol/L (22-32); Chloride 110 mmol/L (98-107); Cholesterol 181 mg/dL (140-199); Estimated Glomerular Filt Rate > 60 mL/min (>60); Globulin 2.7 g/dL (1.7-4.1); Glucose 90 mg/dL (70-100); HDL Cholesterol 37 mg/dL (40-60); HEMOLYSIS < 15 (0-50); LDL Cholesterol Calculated 123 mg/dL (<100); Potassium 4.4 mmol/L (3.4-5.1); Sodium 141 mmol/L (137-145); Total Protein 7.2 g/dL (6.3-8.2); Triglycerides 103 mg/dL (35-150)
[2024-05-18 10:36] LABS: TSH w/ Reflex to FT4 1.63 uIU/mL (0.47-4.68)
[2024-05-19 03:37] LABS: Apolipoprotein B 92 mg/dL (<90)
[2024-05-22 07:41] LABS: Testosterone Free 15.22 ng/dL (0.10-0.85); Testosterone Total 475.5 ng/dL (10.0-55.0)
== END ==
PROVIDERS: Family Provider Family Medicine; PCP Family Medicine; Referring Provider Family Medicine; Visit Provider Family Medicine
DX: Z00.00 Encounter for general adult medical examination without abnormal findings (principal); G47.00 Insomnia, unspecified; F64.0 Transsexualism; Z79.899 Other long term (current) drug therapy; E78.6 Lipoprotein deficiency; E78.5 Hyperlipidemia, unspecified
CPT/HCPCS: 36415; 80053; 80061; 82172; 84402; 84403; 84443; 85025